=== PATIENT | female | born 1965 | race Caucasian/White ===

== ENCOUNTER → 2022-01-28 00:46 | Outpatient (CLI) | payer MEDICARE, MEDICAID, SELFPAY ==
--- NOTE | 2022-01-28 12:15 | DI.MRI_ITS ---
Exam(s) MR IAC BRAIN WO/W EXAM: MR IAC BRAIN WO/W CLINICAL HISTORY: Left middle ear mass,rt impaired speech discrim,h74.92,h93.299,h90.a21. TECHNIQUE: Multiplanar multisequence MRI of the brain and internal auditory canals was performed. CONTRAST MATERIAL: IV Contrast: 15 mL of Magnevist contrast administered. COMPARISON: No exams were available for comparison FINDINGS: VENTRICLES AND EXTRA AXIAL SPACES: Normal in size and morphology for the patient's age. HEMORRHAGE: None. CEREBRAL PARENCHYMA: No focus of restricted diffusion to suggest acute infarct. No space-occupying le quin identified. There are several foci of hyperintense signal seen in the white matter on the T2 and FLAIR images. MIDLINE SHIFT: None. BRAINSTEM/CEREBELLUM: Normal. CALVARIUM: Normal. ENHANCEMENT: No suspicious enhancement identified. VISUALIZED PARANASAL SINUSES/MASTOIDS: The visualized paranasal sinuses are clear. There is T2 hyper intense signal seen in the left mastoid air cells. This shows no enhancement following contrast admi nistration. The right mastoid air cells are clear. [place] OF IRCH: Normal flow void. PITUITARY GLAND: Unremarkable. IAC/CP ANGLE: The internal auditory canals are within normal limits. The cerebellar pontine angles ar e unremarkable. No enhancing lesions are seen. Visualized portion of the facial nerves appear within normal limits. OTHER FINDINGS: None. IMPRESSION: 1. Effusion in the left mastoid air cells. 2. No mass or enhancing lesion seen in the external auditory canals or cerebellopontine angles. 3. No evidence of an acute infarct. 4. T2 hyperintense signal seen on the FLAIR and T2 weighted images in the white matter. This most li nate reflects small vessel ischemic disease. However, other considerations include hypertensive micr oangiopathy or diabetes, deep white matter injury, prior trauma, migraine related deep white matter d isease or demyelinating process. Infection or inflammatory processes cannot be excluded. DATA REPOSITORY:
[2022-01-28] MEDS: Gadoterate meglumine 20 ML VIAL 15 ML IVP (13:22)
--- NOTE | 2022-01-28 16:29 | DI.VRAD_ITS ---
PROCEDURE INFORMATION: Exam: MR Head Without and With Contrast Exam date and time: 01/28/2022 12:40 PM Age: 56 years old Clinical indication: Speech disturbance TECHNIQUE: Imaging protocol: MR of the head without and with intravenous contrast. Contrast material: DOTAREM; Contrast volume: 15 ml; Contrast route: INTRAVENOUS (IV); COMPARISON: No relevant prior studies available. FINDINGS: Brain: Chronic lacunar infarct in the right basal ganglia. No acute infarct. Mild chronic microvascular ischemic changes. Cerebral ventricles: Normal. No ventriculomegaly. Bones/joints: Unremarkable. Paranasal sinuses: Normal as visualized. No acute sinusitis. Mastoid air cells: Effusion in the left mastoid air cells. Orbital cavity: Unremarkable. Soft tissues: Unremarkable. Other findings: No hemorrhage. IMPRESSION: No acute intracranial abnormality. Dictated and Authenticated by: Jeevan Suarez MD. Ordering:BEREKET Hoover MD
== END ==
PROVIDERS: PCP Nurse Practitioner; Visit Provider Otolaryngology
DX: H74.8X2 Other specified disorders of left middle ear and mastoid (principal); H93.292 Other abnormal auditory perceptions, left ear; H90.A21 Sensorineural hearing loss, unilateral, right ear, with restricted hearing on the contralateral side; R90.82 White matter disease, unspecified; R47.89 Other speech disturbances; I67.82 Cerebral ischemia
CPT/HCPCS: 70553

== ENCOUNTER → 2023-07-24 00:28 | Outpatient (CLI) | payer MEDICARE, MEDICAID, SELFPAY ==
--- OUTSIDE RECORDS SUMMARY | 2023-07-24 00:39 | XMS_ITS | Patient Health Record ---
Author Name Unknown [facility] Address [address] [place] [address] Care Team Providers Care Computerized Machine Fabric Cutter Name Role Phone Jonna Bartlettna Primary Care Provider REASON FOR REFERRAL No Information MEDICATIONS Medication SIG (Take, Route, Frequency, Duration) Notes Start Date End Date Status Metoprolol Tartrate 25 MG 1 tablet with food Orally Twice a day NOTE: NEW DOSING Active Atorvastatin Calcium 80 MG 1 tablet Orally Once a day for 90 days Active Flovent HFA 110 mcg/act 2 puff Inhalation Twice a day Active Fenofibrate 160 MG 1 tablet with food Orally Once a day for 30 days Active Multivitamin Womens 50+ Adv - as directed Orally qd for 90 days 09/21/2020 Active Albuterol Sulfate (2.5 MG/3ML) 0.083% 3 ml as needed Inhalation every 8 hrs for 30 days Active ProAir HFA 108 (90 Base) MCG/ACT 2 puff as needed Inhalation every 4 hrs for 30 days 05/24/2020 Active Promethazine HCl 25 mg 1 tablet as neede d Orally every 12 hrs for 15 days PRN Active Pepcid AC Maximum Strength 20 MG 1 tablet at bedtime as needed Orally Once a day Active FLUoxetine HCl 40 MG 1 capsule Orally Once a day Active Lisinopril 40 mg 1 tablet Orally Once a day Active Dorzolamide HCl 2 % 1 drop into affected eye Ophthalmic twice a day Active Flonase Active IMMUNIZATIONS Vaccine Route Administration Date Status Comme nts Tdap HISTORY Unknown 02/21/2019 Administered Influenza FLUBLOK QUAD NONSTATE IM Intramuscular 09/21/2020 Administered SOCIAL HISTORY Tobacco Use: Social History Observation Description Date Details (start date - stop date) Former Smoker NA - NA Sex Assigned At : Social History Observation Description Sex Assigned At Unknown SMOKING Question Answer Notes Are you a: former smoker How long has it been since you last smoked? > 10 years PROBLEMS Problem Type ICD Code Onset Dates Problem Status W/U Status Risk SNOMED Code Notes Problem Refused influenza vaccine (Z28.21) Active confirmed 086035166 Problem Chronic nausea (R11.0) Active confirmed 986795319 Problem Other secondary hypertension (I15.8) Active confirmed 32568418 Problem Gastroesophageal reflux disease without esophagitis (K21.9) Active confirmed 183514672 Problem History of chronic cough (Z87.09) Active confirmed 428521875 Problem Moderate persistent asthma without complication (J45.40) Active confirmed 182641674 Problem Major depressive disorder, remission status unspecified, unspecified whether recurrent (F32.9) Active confirmed 962283437 Problem Other hyperlipidemia (E78.49) Active confirmed 73917425 PLAN OF TREATMENT Future Test Test Name Order Date CBC WITH AUTO DIFF 03/25/2021 COMPMET 03/25/2021 LIPID W/ CALCULATED LDL 03/25/2021 Insurance Providers Payer Name Payer Address Payer Phone Subscriber Number Group Number Insured Name Patient Relationship to Insured Coverage Start Date Coverage End Date MEDICARE [address] [place], [place] [id number] MARCH, NIDHI Self - patient is the insured [place] [employer] [place], [place] [id number] [phone] [id number] MARCH, NDIHI Self - patient is the insured SELF PAY AFTER [place] [address] [place] [address] MARCH, NIDHI Self - patient is the insured MEDICAL (GENERAL) HISTORY Medical History History ICD Code high blood pressure High Cholesterol HX - Smoking asthma MENOPAUSE Sinus tachycardia Vitamin D deficiency Depression CKD - stage 2 Surgical History Surgery Date(Month/Year) tubal ligation 2014 COLONOSCOPY - negative 2015 Hospitalization History Reason Date(Month/Year) Blood pressure issue
--- NOTE | 2023-07-24 07:15 | DI.CT_ITS ---
Exam(s) CT TEMPORAL BONE WO/W EXAM: CT TEMPORAL BONE WO/W CLINICAL HISTORY: disorder of left middle ear, pulsation to TM,SN HEARING LOSS,H74.90,H90.A32. TECHNIQUE: Imaging Protocol: Axial computed tomography images with coronal and sagittal reformatted images were created and reviewed. CONTRAST MATERIAL: Intravenous: Omnipaque 350 Contrast volume:100 COMPARISON: MR MR IAC BRAIN WO/W from 01/28/2022 FINDINGS: Right Temporal Bone: The cochlea, vestibule, vestibular and cochlear aqueduct are normal. The facial nerve canal is well m aintained. The semicircular canals are unremarkable. There is no evidence of dehiscence. The internal auditory canal is within normal limits. The scutum and tegmen are within normal limits. There is no evidence of otosclerosis. The middle ear ossicles are unremarkable. The middle ears clear. The external auditory canal and mastoid air cells are normal. The carotid canal and jugular foramen a re within normal limits. The temporomandibular joint is unremarkable. Left Temporal Bone: The cochlea, vestibule, vestibular and cochlear aqueduct are normal. The facial nerve canal is well m aintained. The semicircular canals are unremarkable. There is no evidence of dehiscence. The interna l auditory canal is within normal limits. The scutum and tegmen are within normal limits. There is no evidence of otosclerosis. The middle ear ossicles are unremarkable. No evidence of erosion or dest ruction. There is fluid seen within the middle ear and the mastoid air cells. The opacity extends i nto the left eustachian tube. The external auditory canal is unremarkable. The carotid canal and jugular foramen are within normal limits. The temporomandibular joint is unremarkable. IMPRESSION: 1. Complete opacification of the left mastoid air cells and middle ear cavity compatible with nonspec ific otomastoiditis. 2. Unremarkable middle ear ossicles. No evidence of erosions or destruction. RADIATION DOSE DELIVERED: 773.65mGy.cm Total DLP DATA REPOSITORY: All CT scans at this facility are submitted to the National Radiology Data Registry (NRDR) Dose Index Registry (DIR) with the [employer] (ACR). RADIATION OPTIMIZATION: All CT scans at this facility use at least one of these dose optimization te chniques: automated exposure control; mA and/or kV adjustment per patient size (includes targeted exa ms where dose is matched to clinical indication); or iterative reconstruction.
[2023-07-24 13:08] LABS: CREATININE 1.4 mg/dL (0.55-1.02); Estimated GFR 43.07 (mL/min/1.73m2)
[2023-07-24] MEDS: Normal Saline - Diluent 50 ML VIAL IJ (13:48)
[2023-07-24] MEDS: Omnipaque 350 MG/ML 100 ML BTL IJ (13:48)
--- NOTE | 2023-07-25 23:19 | DI.VRAD_ITS ---
PROCEDURE INFORMATION: Exam: CT Temporal Bones Without and With Contrast. Exam date and time: 07/24/2023 1:51 PM Age: 58 years old Clinical indication: Other: Unknown TECHNIQUE: Imaging protocol: Computed tomography of the temporal bones without and with contrast. Contrast material: OMNIPAQUE 350; Contrast volume: 100 ml; Contrast route: INTRAVENOUS (IV); COMPARISON: MR IAC BRAIN WO/W 01/28/2022 12:26 PM FINDINGS: Right inner ear: Normal. Right ossicles and middle ear: Normal. The middle ear ossicles are intact. Right external auditory canal: Normal. Right facial nerve canal: Normal. Right jugular foramen: No jugular dehiscence. Right carotid canal: No aberrant carotid canal. Right mastoid air cells: Normal. No mastoid effusions. Left inner ear: Normal. Left ossicles and middle ear: There is complete opacification of the left middle ear cavity. Left middle ear ossicles appear intact with no evidence of erosion or destruction. Opacity extends into the left eustachian tube. Left external auditory canal: Normal. Left facial nerve canal: Normal. Left jugular foramen: No jugular dehiscence. Left carotid canal: No aberrant carotid canal. Left mastoid air cells: There is complete opacification of the left mastoid air cells. Bones/joints: Moderate degenerative changes in the upper cervical spine. Soft tissues: Unremarkable. IMPRESSION: Complete opacification of the left mastoid air cells and middle ear cavity compatible with nonspecific otomastoiditis Dictated and Authenticated by: Favio Wallace MD. Ordering:TAVIA Rollins MD
== END ==
PROVIDERS: PCP Nurse Practitioner; Visit Provider Registered Nurse Maternal Newborn
DX: H70.92 Unspecified mastoiditis, left ear; H90.A32 Mixed conductive and sensorineural hearing loss, unilateral, left ear with restricted hearing on the contralateral side
CPT/HCPCS: 70482; 82565; J3490

== ENCOUNTER 2024-05-11 09:32 | Outpatient (CLI) | payer MEDICARE, MEDICAID, SELFPAY ==
[2024-05-11 10:43] LABS: Abs Immature Grans 0.02 10^3/uL (0.0-0.06); Absolute Basophil Count 0.07 10^3/uL (0.0-0.2); Absolute Eosinophil Count 0.21 10^3/uL (0.0-0.7); Absolute Lymphocyte Count 2.64 10^3/uL (1.2-3.4); Absolute Monocyte Count 0.89 10^3/uL (0.1-0.8); Absolute Neutrophil Count 2.43 10^3/uL (1.2-6.7); Basophils % 1.1 %; Eosinophils % 3.4 %; HCT 37.2 % (36.0-46.0); HGB 11.9 g/dL (11.2-15.7); Immature Grans % 0.3 %; Lymphocytes % 42.2 %; MCH 29.2 pg (27.0-33.0); MCV 91 fL (80-95); MPV 10.3 fL (8.0-11.0); Monocytes % 14.2 %; Neutrophils % 38.8 %; Platelet Count 339 10^3/uL (130-400); RBC 4.08 10^6/uL (3.93-5.22); RDW 12.7 % (11.7-14.6); RDW-SD 42.2 fL; WBC 6.26 10^3/uL (4.4-10.8)
[2024-05-11 10:55] LABS: Hemoglobin A1C 6.1 % (<5.7)
[2024-05-11 11:03] LABS: ALT 57 U/L (14-59); AST 36 U/L (15-37); Albumin 4.1 g/dL (3.4-5.0); Alkaline Phosphatase 59 U/L (46-116); Anion Gap 9.2 mmol/L (3-11); BUN 35 mg/dL (7-18); Bilirubin, Total 0.4 mg/dL (0.2-1.0); CO2 28.8 mmol/L (21.0-32.0); CREATININE 1.2 mg/dL (0.55-1.02); Calcium 9.9 mg/dL (8.5-10.1); Calculated LDL 83 mg/dL (<100); Chloride 102 mmol/L (98-107); Cholesterol 173 mg/dL (<200); Estimated GFR 51.82 (mL/min/1.73m2); Glucose 94 mg/dL (74-106); HDL Cholesterol 43 mg/dL (40-60); Magnesium 1.5 mg/dL (1.8-2.4); Potassium 4.4 mmol/L (3.5-5.1); Sodium 140 mmol/L (136-145); Total Protein 7.9 g/dL (6.4-8.2); Triglyceride 237 mg/dL (<150)
== END 2024-05-11 09:33 | disposition home or self-care (01) ==
LOC: LBO 09:32
PROVIDERS: PCP Nurse Practitioner; Visit Provider Nurse Practitioner
DX: E11.9 Type 2 diabetes mellitus without complications (principal)
CPT/HCPCS: 36415; 80053; 80061; 83036; 83735; 85025

== ENCOUNTER 2024-10-14 09:36 | Outpatient (CLI) | payer MEDICARE, MEDICAID, SELFPAY ==
--- OUTSIDE RECORDS SUMMARY | 2024-10-14 09:39 | XMS_ITS | Encounter Summary ---
Author Organization [facility] Address [facility] [place] [address] Care Team Providers Care Overnight Stocker Name Role Phone Unavailable Primary Care Provider Unavailabl e Encounter Details Date Type Department Care Team (Late st Contact Info) Description 03/17/2022 [place] [address] Walt Braden MD [facility] [place] [address] Unspecified disorder of left middle ear and mastoid Social History Tobacco Use Types Packs/Day Years Used Date Smoking Tobacco: Never Assessed Sex and Gender Information Value Date Recorded Sex Assigned at Not on file Gender Identity Not on file Sexual Orientation Not on file documented as of this encounter Plan of Treatment Not on file documented as of this encounter Visit Diagnoses Diagnosis Unspecified disorder of left middle ear and mastoid documented in this encounter
--- OUTSIDE RECORDS SUMMARY | 2024-10-14 09:39 | XMS_ITS | Encounter Summary ---
Author Organization [facility] [place] [address] Care Team Providers Care Field Sales Associate Name Role Phone Paula Bartlett PICKER/PULLER Primary Care Provider [phone] Encounter Details Date Type Department Care Team (Latest Contact Info) Description 06/25/2022 9:43 PM EDT - 06/25/2022 11:59 PM EDT [place] [phone] Discharge Disposition: Home Social History Tobacco Use Types Packs/Day Years Used Date Smoking Tobacco: Never Assessed Sex and Gender Information Value Date Recorded Sex Assigned at Not on file Gender Identity Not on file Sexual Orientation Not on file documented as of this encounter Plan of Treatment Not on file documented as of this encounter Procedures Procedure Name Priority Date/Time Associated Diagnosis Comments SURGICAL PATHOLOGY REPORT Routine 06/25/2022 9:46 AM EDT documented in this encounter Results * Surgical Pathology Report (06/25/2022 9:46 AM EDT) Final Diagnosis [id number] ? Location: [facility] The signing pathologist has (i) examined the relevant preparation(s) for the specimen(s) and (ii) rendered or confirmed the diagnosis(es). . ?Surgical Pathology DIAGNOSIS A - 3 mm polyp at 15 cm, biopsy: Hyperplastic polyp. Electronically signed by: ?Kevin NEUMANN, Gely Verified: ??07/01/2022 18:32 ??Pathologist Performed at: ??-[facility] [place], [place], [place] SPECIMEN(S) SUBMITTED A - 3 mm polyp at 15 cm Referring Identifier: ??[id number] CLINICAL INFORMATION Initial colonoscopy screening SPECIMEN PROCESSING A - Labeled/Fixativ e: 3 mm polyp at 15 cm, formalin. Quantity/Size: Single, 0.5 cm. Tissue Description: Soft, pink-red tissue. Sections/Proces sing: Submitted en toto ??in 1 cassette labeled A1. ??sns 07/01/2022 6:32 PM EDT [facility] GI Biopsy 06/25/2022 9:46 AM EDT 06/25/2022 9:46 AM EDT Narrative Resulting Agency Comment Spec In Lab / [facility] Jennifer Manzo MD PATHOLOGY/CYTOLOGY O RDERASARTHAK Performing Organization Address City/State/[facility] Co de Phone Number [facility] [place] [address] documented in this encounter Visit Diagnoses Not on filedocumented in this encounter Care Teams Field Sales Associate Relationship Specialty Start Date End Date Paula Bartlett, PICKER/PULLER [address] [place] [id number] PCP - General Family Medicine 03/19/22 documented as of this encounter
--- OUTSIDE RECORDS SUMMARY | 2024-10-14 09:39 | XMS_ITS | Encounter Summary ---
Author Organization [facility] Address [facility] [place] [address] Care Team Providers Care Independent Living Instructor Name Role Phone DhruvPaula Milton REID Primary Care Provider Encounter Details Date Type Department Care Team ([facility] st Contact Info) Description 04/15/2022 Telephone Otolaryngology at [facility] [phone] Isabel Bacon Social History Tobacco Use Types Packs/Day Years Used Date Smoking Tobacco: Never Assessed Sex and Gender Information Value Date Recorded Sex Assigned at Not on file Gender Identity Not on file Sexual Orientation Not on file documented as of this encounter Miscellaneous Notes * Telephone Encounter - Isabel Bacon - 04/15/2022 1:10 PM EDT Pt and her spouse called today to cancel her CT-HT and Appointment with DR Braden. They had no transportation. They declined to re-schedule at this time and stated they will call us to reschedule. documented in this encounter Plan of Treatment Not on file documented as of this encounter Visit Diagnoses Not on filedocumented in this encounter Care Teams Independent Living Instructor Relationship Specialty Start Date End Date Paula Bartlett APRN [address] [place] [id number] PCP - General Family Medicine 03/19/22 documented as of this encounter
--- OUTSIDE RECORDS SUMMARY | 2024-10-14 09:39 | XMS_ITS | Encounter Summary ---
Author Organization [facility] Address [facility] [place] [address] Care Team Providers Care Coroner/Medical Examiner Name Role Phone Unavailable Primary Care Provider Unavailabl e Encounter Details Date Type Department Care Team (Late st Contact Info) Description 01/28/2022 Ancillary Procedure Radiology Library at [facility] [place] [address] Paula Bartlett, JEANETTE [address] [place] [address] Social History Tobacco Use Types Packs/Day Years Used Date Smoking Tobacco: Never Assessed Sex and Gender Information Value Date Recorded Sex Assigned at Not on file Gender Identity Not on file Sexual Orientation Not on file documented as of this encounter Plan of Treatment Not on file documented as of this encounter Procedures Procedure Name Priority Date/Time Associated Diagnosis Comments FILM LIBRARY STORAGE ONLY MR HEAD Routine 01/28/2022 12:00 AM EST documented in this encounter Results * Film Library- Storage Only MR Head (01/28/2022 12:00 AM EST) Narrative [facility] - 03/21/2022 10:59 AM EDT This exam is auto-finalizing. It's purpose is for storage only. Paula Bartlett CONCRETE FLOATER IMG FILM LIBRARY ORD ERABLES [facility] [place], [place] documented in this encounter Visit Diagnoses Not on filedocumented in this encounter
--- OUTSIDE RECORDS SUMMARY | 2024-10-14 09:39 | XMS_ITS | Encounter Summary ---
Author Organization [facility] [place] [address] Care Team Providers Care Cavity Pump Operator Name Role Phone Unavailable Primary Care Provider Unavailabl e Encounter Details Date Type Department Care Team (Late st Contact Info) Description 03/18/2022 Telephone [place] [phone] Subha Flowers Social History Tobacco Use Types Packs/Day Years Used Date Smoking Tobacco: Never Assessed Sex and Gender Information Value Date Recorded Sex Assigned at Not on file Gender Identity Not on file Sexual Orientation Not on file documented as of this encounter Miscellaneous Notes * Telephone Encounter - Subha Flowers - 03/18/2022 1:14 PM EDTSummary: Image Request - [facility] From: Subha Flowers Sent: Friday, March 18, 2022 1:14 PM To: '[email or web address]' <[email or web address]> Subject: Urgent Image Request Patient: Romi March : 1965 [place], The above patient was referred to our ENT clinic at [facility]. Patient hadimages done at your facility and are needed here for proper transition. Please forward the images & reports ROSHNI for our provider to review. Specific images & reports we are looking for are MRI Images done January 2022. Please send them electronically to [facility] to the attention of Dr. Walt Braden. If you do not have the capability to send electronically please send the images & reports on a disc to: [facility] Department of Otolaryngology [address] [place] [id number] Please use FedEx number [id number] to overnight the disc Thank you, Subha Flowers Sr. Clinical [place], Oral & Maxillofacial Surgery, Otolaryngology, and Audiology [facility] phone: [phone] fax: [phone] documented in this encounter Plan of Treatment Not on file documented as of this encounter Visit Diagnoses Not on filedocumented in this encounter
--- OUTSIDE RECORDS SUMMARY | 2024-10-14 09:39 | XMS_ITS | Encounter Summary ---
[place] [address] Care Team Providers Care Deckhand Engineer Name Role Phone Paula Bartlett APRN Primary Care Provider [phone] Encounter Details Date Type Department Care Team ([facility] st Contact Info) Description 03/19/2022 Orders [place] [address] Pauly Gama RN Unspecified disorder of left middle ear and [...] ear and mastoid documented in this encounter Care Teams Deckhand Engineer Relationship Specialty Start Date End Date Paula Bartlett APRN [address] [place] [address] PCP - General Family Medicine 03/19/22 documented as of this encounter
--- OUTSIDE RECORDS SUMMARY | 2024-10-14 09:39 | XMS_ITS | Encounter Summary ---
Author Organization [facility] Address [facility] [place] [address] Care Team Providers Care Precision Inspector Name Role Phone Paula Bartlett APRN Primary Care Provider [phone] Encounter Details Date Type Department Care Team ([facility] st Contact Info) Description 07/24/2023 Ancillary Procedure Radiology Library at [facility] [place] [address] Paula Bartlett APRN [address] [place] [address] Social History Tobacco Use Types Packs/Day Years [...] Associated Diagnosis Comments FILM LIBRARY STORAGE ONLY CT HEAD Routine 07/24/2023 12:00 AM EDT documented in this encounter Results * Film Library- Storage Only CT Head (07/24/2023 12:00 AM EDT) Narrative [facility] - 07/28/2023 7:04 AM EDT This exam is auto-finalizing. It's purpose is for storage only. Paula Bartlett APRN IMG FILM LIBRARY ORD ERABLES [facility] [place], [place] documented in this encounter Visit Diagnoses Not on filedocumented in this encounter Care Teams Precision Inspector Relationship Specialty Start Date End Date Paula Bartlett APRN [address] [place] [address] PCP - General Family Medicine 03/19/22 documented as of this encounter
--- OUTSIDE RECORDS SUMMARY | 2024-10-14 09:39 | XMS_ITS | Patient Health Record ---
Author Organization [facility] Address [address] [place] [address] Care Team Providers Care Nuclear Medicine Pet Ct Technologist Name Role Phone Paula Bartlett Primary Care Provider REASON FOR REFERRAL No [...] Problem Refused influenza vaccine (Z28.21) Active confirmed 738747864 Problem Chronic nausea (R11.0) Active confirmed 205537753 Problem Other secondary hypertension (I15.8) Active confirmed 17582605 Problem Gastroesophageal reflux disease without esophagitis (K21.9) Active confirmed 622750258 Problem History of chronic cough (Z87.09) Active confirmed 000018538 Problem Moderate persistent asthma without complication (J45.40) Active confirmed 753488078 Problem Major depressive disorder, remission status unspecified, unspecified whether recurrent (F32.9) Active confirmed 439761135 Problem Other hyperlipidemia (E78.49) Active confirmed 13815730 PLAN OF TREATMENT Future Test Test Name Order Date CBC WITH AUTO DIFF 03/25/2021 COMPMET 03/25/2021 LIPID W/ CALCULATED LDL 03/25/2021 Insurance Providers Payer Name Payer Address Payer Phone Subscriber Number Group Number Insured Name Patient Relationship to Insured Coverage Start Date Coverage End Date MEDICARE [address] [place], [place] [id number] MARCH, NIDHI Self - patient is the insured [place] [employer] [place], [place] [id number] [phone] [id number] MARCH, NIDHI Self - patient is the insured SELF PAY AFTER [place] [address] [address] MARCH, NIDHI Self - patient is the insured MEDICAL (GENERAL) HISTORY Medical History History ICD Code high blood pressure High Cholesterol HX - Smoking asthma MENOPAUSE Sinus tachycardia Vitamin D deficiency Depression CKD - stage 2 Surgical History Surgery Date(Month/Year) tubal ligation 2014 COLONOSCOPY - negative 2015 Hospitalization History Reason Date(Month/Year) Blood pressure issue
--- OUTSIDE RECORDS SUMMARY | 2024-10-14 09:39 | XMS_ITS | Encounter Summary ---
Author Organization [facility] Address [facility] [place] [address] Care Team Providers Care Coarse Wire Drawer Name Role Phone DhruvPaula haji JEANETTE Primary Care Provider [phone] Reason for Referral * Consultation (Routine) - Closed Specialty Diagnoses / Procedures Referred By Anthony dunaway Referred To Contact Otolaryngology Diagnoses Unspecified disorder of left middle ear and mastoid Mixed conductive and sensorineural hearing loss, unilateral, left ear with restricted hearing on the contralateral side Ria Cruz APRN [address] [place] [address] [place] [address] Walt Braden MD [facility] [place] [address] Referral ID Status Reason Start Date Expiration Date V isits Requested Visits Authorized [id number] Closed Consult, Test & Treat PCP Updated and/or Approved 07/30/2023 07/29/2024 1 1 Encounter Details Date Type Department Care Team (Latest Contact Info) Description 07/30/2023 Transcribe Orders eDH Incoming Referrals [phone] Cruz [address] [place], [place] [id number] Unspecified disorder of left middle ear and mastoid; Mixed conductive and sensorineural hearing loss, unilateral, left ear with restricted hearing on the contralateral side Social History Tobacco Use Types Packs/Day Years Used Date Smoking Tobacco: Never Assessed Sex and Gender Information Value Date Recorded Sex Assigned at Not on file Gender Identity Not on file Sexual Orientation Not on file documented as of this encounter Plan of Treatment Scheduled Referrals Name Type Priority Associated Diagnoses Orde r Schedule Referral to ENT Outpatient Referral Routine Unspecified disorder of left middle ear and mastoid Mixed conductive and sensorineural hearing loss, unilateral, left ear with restricted hearing on the contralateral side Ordered: 07/30/2023 documented as of this encounter Visit Diagnoses Diagnosis Unspecified disorder of left middle ear and mastoid Mixed conductive and sensorineural hearing loss, unilateral, left ear with restricted hearing on the contralateral side documented in this encounter Care Teams Coarse Wire Drawer Relationship Specialty Start Date End Date Paula Bartlett APRN [address] [place] [id number] PCP - General Family Medicine 03/19/22 documented as of this encounter
--- OUTSIDE RECORDS SUMMARY | 2024-10-14 09:39 | XMS_ITS | Clinical Summary ---
Author Organization [facility] [place] [address] Care Team Providers Care Global Director Air And Climate Change Name Role Phone Paula Bartlett JEANETTE Primary Care Provider [phone] Immunizations Name Administration Dates Next Due Covid-19 Monovalent (Pfizer Comirnaty maddox cap) 12yrs+ ([id number]) 09/18/2021,08/15/2021 Social History Tobacco Use Types Packs/Day Years Used Date Smoking Tobacco: Never Assessed Sex and Gender Information Value Date Recorded Sex Assigned at Not on file Gender Identity Not on file Sexual Orientation Not on file Plan of Treatment Health Maintenance Due Date Last Done Comments CT Colonography 1963 Colonoscopy 1963 Colorectal Cancer Screening 1963 FIT DNA 1963 FIT 1963 Sigmoidoscopy (10 year) with FIT yearly 1963 Sigmoidoscopy 1963 HIV screen 1981 Hepatitis C Screening 1981 Tetanus/Diphtheria/Pertussis Vaccines (1 - Tdap) 1982 HPV test 1993 PAP Smear 1993 Breast Cancer Share Decision Needed 2003 Breast Cancer screening 2003 Zoster vaccine (1 of 2) 2013 Advance Directive 2018 Covid-19 Vaccine ( season) 2024, 08/15/2021 Influenza (Flu) vaccine (1 o f 1 - Influenza standard series) 07/31/2024 Care Teams Global Director Air And Climate Change Relationship Specialty Start Date End Date Paula Bartlett APRN [address] [place] [address] PCP - General Family Medicine 03/19/22
--- OUTSIDE RECORDS SUMMARY | 2024-10-14 09:39 | XMS_ITS | Encounter Summary ---
Author Organization [facility] Address [facility] [place] [address] Care Team Providers Care Gymnastics Coach Name Role Phone Unavailable Primary Care Provider Unavailabl e Reason for Referral * Consultation (Routine) - Closed Specialty Diagnoses / Procedures Referred By Anthony t Referred To Contact Otolaryngology Diagnoses Unspecified disorder of left middle ear and mastoid Other abnormal auditory perceptions, unspecified ear Mixed conductive and sensorineural hearing loss, unilateral, left ear with restricted hearing on the contralateral side Sensorineural hearing loss, unilateral, right ear, with restricted hearing on the contralateral side Attn Walt Braden: this is the patient has spoke to you about who 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 your plan was to perform a ct scan of her temporal bone on the same day that you saw her. Kiko Mi MD [address] [place] [address] [place] [address] Walt Braden MD [facility] [place] [address] Referral ID Status Reason Start Date Expiration Date V isits Requested Visits Authorized [id number] Closed Consult, Test & Treat 02/07/2022 02/07/2023 1 1 Encounter Details Date Type Department Care Team (Latest Contact Info) Description 02/07/2022 Transcribe Orders [place] [address] Kkio Mi MD [address] [place] [address] [place] [address] Unspecified disorder of left middle ear and mastoid; Other abnormal auditory perceptions, unspecified ear; Mixed conductive and sensorineural hearing loss, unilateral, left ear with restricted hearing on the contralateral side; Sensorineural hearing loss, unilateral, right ear, with restricted hearing on the contralateral side [...] disorder of left middle ear and mastoid Other abnormal auditory perceptions, unspecified ear Mixed conductive and sensorineural hearing loss, unilateral, left ear with restricted hearing on the contralateral side Sensorineural hearing loss, unilateral, right ear, with restricted hearing on the contralateral side Ordered: 02/07/2022 documented as of this encounter Visit Diagnoses Diagnosis Unspecified disorder of left middle ear and mastoid Other abnormal auditory perceptions, unspecified ear Mixed conductive and sensorineural hearing loss, unilateral, left ear with restricted hearing on the contralateral side Sensorineural hearing loss, unilateral, right ear, with restricted hearing on the contralateral side documented in this encounter
[2024-10-14 09:55] LABS: Abs Immature Grans 0.03 10^3/uL (0.0-0.06); Absolute Basophil Count 0.08 10^3/uL (0.0-0.2); Absolute Eosinophil Count 0.27 10^3/uL (0.0-0.7); Absolute Lymphocyte Count 2.36 10^3/uL (1.2-3.4); Absolute Monocyte Count 0.76 10^3/uL (0.1-0.8); Absolute Neutrophil Count 4.44 10^3/uL (1.2-6.7); Eosinophils % 3.4 %; HCT 34.4 % (36.0-46.0); HGB 11.2 g/dL (11.2-15.7); Immature Grans % 0.4 %; Lymphocytes % 29.7 %; MCHC 32.6 % (32.0-36.0); MCV 89 fL (80-95); MPV 10.2 fL (8.0-11.0); Monocytes % 9.6 %; Neutrophils % 55.9 %; Platelet Count 381 10^3/uL (130-400); RBC 3.86 10^6/uL (3.93-5.22); RDW 12.3 % (11.7-14.6); RDW-SD 40.2 fL; WBC 7.94 10^3/uL (4.4-10.8)
[2024-10-14 10:07] LABS: ALT 40 U/L (14-59); AST 24 U/L (15-37); Albumin 4.1 g/dL (3.4-5.0); Alkaline Phosphatase 51 U/L (46-116); Anion Gap 8.9 mmol/L (3-11); BUN 45 mg/dL (7-18); Bilirubin, Total 0.36 mg/dL (0.2-1.0); CO2 29.1 mmol/L (21.0-32.0); CREATININE 1.5 mg/dL (0.55-1.02); Calcium 10.6 mg/dL (8.5-10.1); Calculated LDL 89 mg/dL (<100); Chloride 104 mmol/L (98-107); Cholesterol 175 mg/dL (<200); Glucose 98 mg/dL (74-106); HDL Cholesterol 44 mg/dL (40-60); Magnesium 1.5 mg/dL (1.8-2.4); Potassium 4.5 mmol/L (3.5-5.1); Sodium 142 mmol/L (136-145); Total Protein 8.1 g/dL (6.4-8.2); Triglyceride 214 mg/dL (<150)
== END 2024-10-14 09:37 | disposition home or self-care (01) ==
LOC: LBO 09:37
PROVIDERS: PCP Nurse Practitioner; Visit Provider Nurse Practitioner
DX: E11.9 Type 2 diabetes mellitus without complications (principal); E78.49 Other hyperlipidemia
CPT/HCPCS: 36415; 80053; 80061; 83735; 85025

== ENCOUNTER 2024-10-24 11:51 | Outpatient (CLI) | payer MEDICARE, MEDICAID, SELFPAY ==
[2024-10-24 09:54] LABS: Abs Immature Grans 0.02 10^3/uL (0.0-0.06); Absolute Basophil Count 0.05 10^3/uL (0.0-0.2); Absolute Eosinophil Count 0.31 10^3/uL (0.0-0.7); Absolute Lymphocyte Count 1.81 10^3/uL (1.2-3.4); Absolute Monocyte Count 0.61 10^3/uL (0.1-0.8); Absolute Neutrophil Count 3.33 10^3/uL (1.2-6.7); Basophils % 0.8 %; Eosinophils % 5.1 %; HCT 33.9 % (36.0-46.0); HGB 11.1 g/dL (11.2-15.7); Immature Grans % 0.3 %; Lymphocytes % 29.5 %; MCH 28.3 pg (27.0-33.0); MCHC 32.7 % (32.0-36.0); MCV 87 fL (80-95); MPV 9.6 fL (8.0-11.0); Neutrophils % 54.3 %; Platelet Count 551 10^3/uL (130-400); RBC 3.92 10^6/uL (3.93-5.22); RDW 12.6 % (11.7-14.6); RDW-SD 39.7 fL; WBC 6.13 10^3/uL (4.4-10.8)
[2024-10-24 10:18] LABS: ALT 46 U/L (14-59); AST 28 U/L (15-37); Albumin 3.5 g/dL (3.4-5.0); Alkaline Phosphatase 91 U/L (46-116); Anion Gap 10.6 mmol/L (3-11); BUN 74 mg/dL (7-18); CO2 26.4 mmol/L (21.0-32.0); CREATININE 2.7 mg/dL (0.55-1.02); Calculated LDL 132 mg/dL (<100); Chloride 100 mmol/L (98-107); Cholesterol 221 mg/dL (<200); Estimated GFR 19.46 (mL/min/1.73m2); Glucose 113 mg/dL (74-106); HDL Cholesterol 30 mg/dL (40-60); Magnesium 2.2 mg/dL (1.8-2.4); Potassium 4.2 mmol/L (3.5-5.1); Sodium 137 mmol/L (136-145); Total Protein 8.7 g/dL (6.4-8.2); Triglyceride 298 mg/dL (<150)
== END 2024-10-24 11:52 | disposition home or self-care (01) ==
LOC: LBO 11:54
PROVIDERS: PCP Nurse Practitioner; Visit Provider Nurse Practitioner
DX: E11.9 Type 2 diabetes mellitus without complications (principal)
CPT/HCPCS: 36415; 80053; 80061; 83735; 85025

== ENCOUNTER 2024-10-26 01:09 | Outpatient (CLI) | payer MEDICARE, MEDICAID, SELFPAY ==
--- NOTE | 2024-10-26 | DI.US_ITS ---
Exam(s) US RENAL EXAM: US RENAL CLINICAL HISTORY: ABNL LEVELS SERUM ENZYMES, R74.8. TECHNIQUE: Zavala scale, color and spectral Doppler were used. COMPARISON: No exams were available for comparison FINDINGS: Renal size in cm: Right: 10.5. Left: 10.7. Echogenicity: Normal. Hydronephrosis: No. Cyst or mass: There is a 1.4 x 1.1 x 1.1 cm simple cyst in the inferior pole of the left kidney. No follow-up is recommended. Nephrolithiasis: No. Other findings: None. Bladder:The bladder was completely empty and could not be evaluated. Ureteral jets: Right: Not visualized on this examination. Left: Not visualized on this examination. Renal color flow: Symmetric and within normal limits. IMPRESSION: 1. Unremarkable kidneys. 2. The urinary bladder cannot be evaluated as the bladder was completely empty on the examination. DATA REPOSITORY:
== END 2024-10-26 01:29 ==
LOC: DI 01:09
PROVIDERS: PCP Nurse Practitioner; Visit Provider Nurse Practitioner
DX: R74.8 Abnormal levels of other serum enzymes (principal)
CPT/HCPCS: 76770

== ENCOUNTER 2025-01-06 13:56 | Outpatient (CLI) | payer MEDICARE, MEDICAID, SELFPAY ==
[2025-01-06 11:34] LABS: ALT 25 U/L (14-59); AST 21 U/L (15-37); Albumin 4.1 g/dL (3.4-5.0); Alkaline Phosphatase 54 U/L (46-116); Anion Gap 9.9 mmol/L (3-11); BUN 25 mg/dL (7-18); Bilirubin, Total 0.48 mg/dL (0.2-1.0); CO2 27.1 mmol/L (21.0-32.0); CREATININE 1.8 mg/dL (0.55-1.02); Chloride 102 mmol/L (98-107); Estimated GFR 31.66 (mL/min/1.73m2); Glucose 106 mg/dL (74-106); Potassium 4.2 mmol/L (3.5-5.1); Sodium 139 mmol/L (136-145); Total Protein 8.3 g/dL (6.4-8.2)
== END 2025-01-06 13:57 | disposition home or self-care (01) ==
LOC: LBO 13:57
PROVIDERS: PCP Nurse Practitioner; Visit Provider Nurse Practitioner
DX: R74.8 Abnormal levels of other serum enzymes (principal)
CPT/HCPCS: 36415; 80053

== ENCOUNTER 2025-01-13 10:44 | Day surgery (SDC) | payer MEDICARE, MEDICAID, SELFPAY ==
[2025-01-13 11:20] VITALS: BP 175/86; PULSE 57; RESP 16; TEMP 36.3; O2SAT 98
[2025-01-13] MEDS: Tropicam./Phenyleph. (1/2.5%) 5 ML BTL OD ×3 (11:35→11:44)
--- NOTE | 2025-01-13 12:24 | ANES.PREOP_ITS ---
General Info Date of Service Date Performed: 01/13/25 Height: 5 ft 2 in Weight: 67.2 kg Body Mass Index (BMI): 27.1 Surgical Procedure: Operation Date: 01/13/25 12:25 Proposed Procedure Side Surgeon p Cataract Extraction with IOL Implant, Glaucoma Stent Right Luke Anderson MD Meds Allergies and Home Medications Allergies Allergy/AdvReac Type Severity Reaction Status Date / Time No Known Allergies Allergy Verified 01/13/25 11:30 Home Medication ?Medication ?Instructions ?Recorded albuterol sulfate 1.25 mg/3 mL 1.25 mg inhalation TID-QID PRN 06/01/23 solution for nebulization albuterol sulfate 90 mcg/actuation 2 puff inhalation Q4H PRN 06/01/23 aerosol inhaler atorvastatin 80 mg tablet 80 mg PO DAILY 06/01/23 dorzolamide 2 % eye drops 1 drp ophthalmic (eye) TID 06/01/23 famotidine 20 mg tablet 20 mg PO DAILY 06/01/23 fenofibrate 160 mg tablet 160 mg PO DAILY 06/01/23 fluoxetine 40 mg capsule 40 mg PO DIRECTED 06/01/23 fluticasone propionate 110 2 puff inhalation BID 06/01/23 mcg/actuation HFA aerosol inhaler fluticasone propionate 50 2 spray intranasal DAILY 06/01/23 mcg/actuation nasal spray,suspension (Allergy Relief (fluticasone)) hydrochlorothiazide 50 mg tablet 50 mg PO BID 06/01/23 lisinopril 40 mg tablet 40 mg PO DAILY 06/01/23 metoprolol tartrate 50 mg tablet 50 mg PO BID 06/01/23 multivitamin (Daily Multi-Vitamin 1 tab PO DAILY 06/01/23 tablet) Current Visit Medications: Current Medications Generic Name Dose Route Start Last Admin Trade Name Freq PRN Reason Stop Dose Admin Acetaminophen 1,000 mg 01/13/25 06:00 Acetaminophen 500 Mg Tab PO 02/12/25 05:59 Q4H PRN PRN Balanced Salt Solution 500 ml 01/13/25 06:00 Balanced Salt Soln.-Plus 500 Ml Bag OP 02/12/25 05:59 DIRECTED ALDA Miscellaneous Medication 0 ml 01/13/25 06:00 Prednisolone 1%, Moxifloxacin 0.5%, Bromfenac 0.09% 5.6ml Btl OD 02/12/25 05:59 DIRECTED COUNTS INCLUDE 234 BEDS AT THE [facility] Miscellaneous Medication 0 ml 01/13/25 06:00 01/13/25 11:44 Tropicam./Phenyleph. (1/2.5%) 5 Ml Btl OD 02/12/25 05:59 1 drp DIRECTED ALDA Administration Tetracaine HCl 0 ml 01/13/25 06:00 Tetracaine 0.5% 4 Ml Btl OD 02/12/25 05:59 DIRECTED COUNTS INCLUDE 234 BEDS AT THE [facility] PFSH Active Problems Active Problems: Problem Status Onset Code Posterior subcapsular age-related cataract, right eye Acute H25.041 Nuclear age-related cataract, right eye Acute H25.11 Snoring Acute R06.83 Disorder of middle ear and mastoid Acute H74.90 Impairment of speech discrimination Acute H93.299 Sensorineural hearing loss of right ear Acute H90.5 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 ear Acute H90.A32 Medical History Medical History Influenza vaccination declined History of colonic polyps Chronic cough Habitual snoring Sleeping difficulties Nevus Moderate persistent asthma without complication Vitamin D deficiency Sinus tachycardia Menopause History of cigar smoking CKD (chronic kidney disease) stage 2, GFR 60-89 ml/min Hyperlipidemia GERD (gastroesophageal reflux disease) Chronic nausea Major depressive disorder Secondary hypertension Surgical History Surgical History History of bilateral tubal ligation H/O colonoscopy Tobacco Smoking/Tobacco Use Status: Never Alcohol Alcohol Intake: current Alcohol intake frequency: holidays/special occasions only Substance Use Substance use: Never Substance use type: does not use Vital Signs and Lab Results Vital Signs Most Recent Vital Signs in EMR: Most Recent Vital Signs Temp Pulse Resp BP Pulse Ox 36.3 C L 57 L 16 175/86 H 98 01/13/25 11:20 01/13/25 11:20 01/13/25 11:20 01/13/25 11:20 01/13/25 11:20 Lab Results Blood Type / Crossmatch: No Data to Display Complete Blood Count: No Data to Display Complete Metabolic Panel: Sodium 139 mmol/L (136-145) 01/06/25 10:45 Potassium 4.2 mmol/L (3.5-5.1) 01/06/25 10:45 Chloride 102 mmol/L (98-107) 01/06/25 10:45 Carbon Dioxide 27.1 mmol/L (21.0-32.0) 01/06/25 10:45 BUN 25 mg/dL (7-18) H 01/06/25 10:45 Creatinine 1.8 mg/dL (0.55-1.02) H 01/06/25 10:45 Est GFR (CKD-EPI 2020) 31.66 (mL/min/1.73m2) 01/06/25 10:45 Calcium 10.0 mg/dL (8.5-10.1) 01/06/25 10:45 Albumin 4.1 g/dL (3.4-5.0) 01/06/25 10:45 Glucose 106 mg/dL (74-106) 01/06/25 10:45 Liver Function Panel: Alanine Aminotransferase (ALT/SGPT) 25 U/L (14-59) 01/06/25 10: 45 Aspartate Amino Transf (AST/SGOT) 21 U/L (15-37) 01/06/25 10:45 Coagulation Panel: No Data to Display Cardiac Panel: No Data to Display Arterial Blood Gas: No Data to Display Venous Blood Gas: No Data to Display Pancreas Panel: No Data to Display Thyroid Panel: No Data to Display Infectious Disease: No Data to Display Blood Cultures: No Data to Display Toxicology Panel: No Data to Display Anesthesia Assessment and Plan Anesthesia History Personal History: No History of Anesthesia Complications Family History: No Family History of Anesthesia Complications Exercise Tolerance Exercise Tolerance: Metabolic Equivalents>4 Cardiac & Pulmonary Exam Cardiac Exam: Normal S1/S2 Heart Sounds Pulmonary Exam: Clear Bilateral Breath Sounds Implantable Cardiac Device Does patient have a Pacemaker or an ICD?: No Airway Exam Known Difficult Airway: No Mallampati Class: 2 Mouth Opening: Normal (> 3cm) Thyromental Distance: Greater than 3 cm Neck Range of Motion: Full ROM Neck Circumference: Thick Teeth Condition: Edentulous ASA Classification ASA Score: ASA 2 Emergency Case?: No NPO Status NPO Status: NPO Clears >2 hours, Solids >8 hours Anesthesia Plan Resuscitation Status: Full Code Anesthesia Technique: MAC Anesthesia Airway Planned: Natural Airway Monitors Used: Standard Monitors
[2025-01-13 12:27] VITALS: BMI 27.1
[2025-01-13] MEDS: Duovisc Viscoelastic System EACH 1 EACH (12:55)
[2025-01-13] MEDS: Lidocaine 1% Pres-Free 5 ML VIAL (12:56)
[2025-01-13] MEDS: Moxifloxacin-PF 1 MG/ML VIAL (12:56)
[2025-01-13] MEDS: Povidone-Iodine Ophth 30 ML BTL (12:57)
[2025-01-13] MEDS: Phenylephrine/Lidocaine (15/10) MG/ML 1 ML VIAL (12:57)
[2025-01-13] MEDS: Trypan Blue 0.06% 0.5 ML SYR (12:58)
[2025-01-13] MEDS: Prednisolone 1%, Moxifloxacin 0.5%, Bromfenac 0.09% 5.6ML BTL OD (12:58)
[2025-01-13] MEDS: Balanced Salt Soln.-PLUS 500 ML BAG OP (12:58)
[2025-01-13] MEDS: Tetracaine 0.5% 4 ML BTL OD (12:59)
[2025-01-13 13:24] VITALS: BP 126/66; PULSE 56; RESP 16; TEMP 36.6; O2SAT 96
--- NOTE | 2025-01-13 13:26 | W.PM.DSUDISC ---
Date of service: 01/13/25 Discharge Plan Disposition Patient Disposition: Home Discharge Details Attending Provider: Luke Anderson Primary Care Provider: Paula Bartlett Home Meds and New Rx's Prescriptions: No Action fluoxetine 40 mg capsule 40 mg PO DIRECTED albuterol sulfate 90 mcg/actuation HFA aerosol inhaler 2 puff inhalation Q4H PRN albuterol sulfate 1.25 mg/3 mL solution for nebulization 1.25 mg inhalation TID-QID PRN dorzolamide 2 % drops 1 drp ophthalmic (eye) TID fluticasone propionate 110 mcg/actuation HFA aerosol inhaler 2 puff inhalation BID fluticasone propionate [Allergy Relief (fluticasone)] 50 mcg/actuation spray,suspension 2 spray intranasal DAILY Rx Instructions: administer into each nostril multivitamin [Daily Multi-Vitamin] Tablet 1 tab PO DAILY fenofibrate 160 mg tablet 160 mg PO DAILY atorvastatin 80 mg tablet 80 mg PO DAILY famotidine 20 mg tablet 20 mg PO DAILY lisinopril 40 mg tablet 40 mg PO DAILY hydrochlorothiazide 50 mg tablet 50 mg PO BID metoprolol tartrate 50 mg tablet 50 mg PO BID Discharge Instructions Stand Alone Forms: DSU Post-Op CataractAnastasiya (DSU) Discharge Orders Discharge Orders: Discharge Order (Routine); Ordered 01/13/25 Ordered By: Luke Anderson DS: Diagnosis Discharge Diagnosis (1) Posterior subcapsular age-related cataract, right eye: Status: Resolved (2) Nuclear age-related cataract, right eye: Status: Resolved
--- NOTE | 2025-01-13 13:27 | W.PM.OP ---
Operative Note Operative Note PRE-OP DIAGNOSIS: Nuclear/posterior subcapsular cataract, right eye Primary open-angle glaucoma, right eye, moderate stage POST-OP DIAGNOSIS: same PROCEDURE: Cataract extraction using phacoemulsification with intraocular lens implant, right eye Insertion of multiple anterior segment aqueous drainage devices (Glaukos iStent inject W) into trabecular meshwork, right eye SURGEON: Luke Anderson ANESTHESIA TYPE: Local By Surgeon and MAC Refer to Anesthesia Record ESTIMATED BLOOD LOSS: 0 PATHOLOGY: none sent COMPLICATIONS: None Patient was transported to: same day Patient's condition: stable Implants: Pj Clareon [id number] Indications: Progressive decreased vision due to cataract, right eye Primary open-angle glaucoma, right eye Procedure Description: CATARACT SURGERY OPERATIVE REPORT PREOPERATIVE DIAGNOSIS: 1. Nuclear/posterior subcapsular cataract, right eye 2. Primary open-angle glaucoma, right eye, moderate stage POSTOPERATIVE DIAGNOSIS: Same OPERATION: 1. Cataract extraction using phacoemulsification with posterior chamber intraocular lens implant, right eye. 2. Insertion of multiple anterior segment aqueous drainage devices (Glaukos iStent inject W) into trabecular meshwork, right eye IOL: IOL Pj Clareon [id number] intraocular lens IOL Power: + 21.0 diopters IOL Serial Number: [id number] Optic Diameter: 6.0mm Haptic/Overall Diameter: 13.0mm PHACO INFO: Pj Centurion Vision System with OZil and Active Fluidics Cumulative Dispersed Energy (CDE): 16.8 seconds TRABECULAR MICRO-BYPASS STENT INFO: Glaukos iStent inject x 3 Reference Number: [id number] Serial Number: [id number] SURGEON: Luke Anderson MD, CALIN ANESTHESIA: Monitored Anesthesia Care (MAC), with local sub-tenon's anesthetic infiltration COMPLICATIONS: None SPECIMENS: None INDICATIONS FOR PROCEDURE: The patient is a 59-year-old lady with history of moderate stage primary open-angle glaucoma, currently controlled on 3 medications. She has developed a significant nuclear/posterior subcapsular cataract in the right eye and desires cataract surgery to improve and maximize her vision. The option of minimally invasive glaucoma surgery at the time of cataract surgery was offered to the patient and she wished to proceed with this as well, in the form of trabecular micro-bypass stent. See office notes for detailed information. PROCEDURE: The correct surgical eye was identified and marked as the right eye and the pupil was dilated in the preoperative area using mydriatics and cycloplegics. The dilated pupil size was 7.0 mm. Oral sedation was administered in the form of an Imprimis MKO Melt (midazolam 3mg/ketamine 25mg/ondansetron 2mg). The patient was brought to the operating room where cardiopulmonary monitoring was instituted and surgical time-out was performed, confirming the correct operative eye and IOL power. Topical anesthesia was administered and ophthalmic povidone-iodine 5% was instilled into the conjunctival fornices. The ming-ocular area was prepped with Betadine 10% solution and draped in the usual sterile fashion for intraocular surgery, including an aperture drape. A Tegaderm transparent film dressing was cut in half and used to cover the lashes and lid margins. Care was taken to sequester the lashes and lid margins under the Tegaderm dressing. A lid speculum was placed between the lids of the operative eye and the Pj LuxOR Revalia operating microscope was maneuvered into position. Aimee scissors were then used to make a conjunctival buttonhole approximately 6mm posterior to the limbus in the inferonasal quadrant. Blunt dissection was carried out to expose bare sclera, and a blunt-tipped sub-tenon?s anesthesia cannula was introduced and passed posteriorly along the globe where non-preserved plain lidocaine was injected into posterior sub-Tenon?s space. A sideport knife was used to make a paracentesis port. VisionBlue was injected into the anterior chamber and allowed to sit for 30 seconds. Intraocular phenylephrine/lidocaine was injected into the anterior chamber. The anterior chamber was then filled with viscoelastic. A keratome knife was used to construct a 2-plane clear corneal tunnel extending 2.0mm into clear cornea. A flap was raised on the anterior capsule and capsulorhexis forceps were used to complete a continuous curvilinear capsulorhexis of 5.0 mm. Balanced salt solution was then used to perform cortical cleaving hydrodissection and nuclear hydrodelineation until the lens could be freely rotated within the capsular bag. The lens nucleus was then disassembled and removed within the capsular bag and iris plane using phacoemulsification. Residual cortical material was removed using the irrigation/aspiration handpiece. The posterior capsule was carefully polished to remove as much residual lens epithelial cells as safely possible. The capsular bag was then inflated and the anterior chamber deepened with cohesive viscoelastic. The lens implant described above was inserted into the capsular bag using the pre-loaded Pj Autonome Injector. A Kuglen hook was used to dial the IOL into position. The anterior chamber was then slightly over-filled with viscoelastic. The microsope and the patient's head were tilted into the ideal position for viewing of the anterior chamber angle. Viscoelastic was placed on the cornea followed by a surgical gonionlens, and the anterior chamber angle landmarks were identified. The Metconnex iSMandelbrot Projectt inject Infinite handpiece was introduced under direct visualization.. The trocar was advanced through the central portion of the trabecular meshwork and into the back wall of Schlemm's canal in the inferonasal quadrant, with care taken to ensure the micro-insertion tube was perpendicular to the trabecular meshwork. The trabecular meshwork was lightly dimpled and the stent was injected without difficulty. The same procedure was then performed in the nasal quadrant. The third stent could not be injected, as the patient was moving uncontollably. The first two stents were then examined and noted to be in good position within the trabecular meshwork. A mild amount of blood reflux was noted through the stent apertures. The microscope and the patients head were returned to the normal coaxial position. Viscoelatic was then removed from the anterior chamber using the I/A handpiece. The lens implant was noted to center nicely within the capsular bag. The incisions were stromally hydrated, and the anterior chamber was reformed using BSS. Then 0.5cc of moxifloxacin 1.0mg/ml were injected into the capsular bag and anterior chamber. The incisions were checked with a Weck spear and found to be secure. Several drops of ophthalmic povidone-iodine 5% were then applied to the eye followed by two drops of Imprimis combination prednisolone/moxifloxacin/nepafenac solution. The drapes were removed and a clear plastic protective eye shield was placed over the eye. The patient was then returned to Same Day Surgery in stable condition. Date of Procedure: 01/13/25
--- NOTE | 2025-01-13 13:47 | W.ANESPOSTOP ---
Postoperative Evaluation Date, Time and Location Date Performed: 01/13/25 Time Performed: 13:35 Patient Location: Day Surgery Unit Vital Signs Most Recent Imported Vital Signs: Most Recent Vital Signs Temp Pulse Resp BP Pulse Ox 36.6 C 56 L 16 126/66 96 01/13/25 13:24 01/13/25 13:24 01/13/25 13:24 01/13/25 13:24 01/13/25 13:24 Pain Score Most Recent Pain Score: Most Recent Pain Score Pain Level 0 01/13/25 13:24 Assessment Mental Status: Awake (Alert & Oriented to Patient Baseline) Airway and Respiratory Function: Patent airway with normal (patient baseline) respiratory exam Cardiovascular Function: Hemodynamically Stable Hydration Status: Adequately Hydrated Nausea & Vomiting: No Nausea or Vomiting Pain: Pt. Denies Any Pain Peripheral Nerve Block: Patient did not receive a nerve block
[2025-01-13 16:21] VITALS: BP 124/72; PULSE 59; RESP 16; TEMP 36.4; O2SAT 98
== END 2025-01-13 14:02 | disposition home or self-care (01) ==
PROVIDERS: PCP Nurse Practitioner; Visit Provider Ophthalmology
PROC: (CPT 66991; principal; 2025-01-13 12:15)
DX: H25.041 Posterior subcapsular polar age-related cataract, right eye (principal); H25.11 Age-related nuclear cataract, right eye; H40.1112 Primary open-angle glaucoma, right eye, moderate stage
CPT/HCPCS: 66991; 00123; V2632; J2003

== ENCOUNTER 2025-01-27 16:11 | Outpatient (CLI) | payer MEDICARE, MEDICAID, SELFPAY ==
[2025-01-27 10:53] LABS: Abs Immature Grans 0.01 10^3/uL (0.0-0.06); Absolute Basophil Count 0.06 10^3/uL (0.0-0.2); Absolute Eosinophil Count 0.17 10^3/uL (0.0-0.7); Absolute Lymphocyte Count 1.46 10^3/uL (1.2-3.4); Absolute Monocyte Count 0.47 10^3/uL (0.1-0.8); Absolute Neutrophil Count 2.56 10^3/uL (1.2-6.7); Basophils % 1.3 %; Eosinophils % 3.6 %; HGB 10.7 g/dL (11.2-15.7); Immature Grans % 0.2 %; Lymphocytes % 30.9 %; MCH 28.7 pg (27.0-33.0); MCHC 32.4 % (32.0-36.0); MCV 89 fL (80-95); MPV 11.1 fL (8.0-11.0); Monocytes % 9.9 %; Neutrophils % 54.1 %; Platelet Count 338 10^3/uL (130-400); RBC 3.73 10^6/uL (3.93-5.22); RDW 14.7 % (11.7-14.6); RDW-SD 47.5 fL; WBC 4.73 10^3/uL (4.4-10.8)
[2025-01-27 11:18] LABS: Hemoglobin A1C 5.7 % (<5.7)
[2025-01-27 11:45] LABS: ALT 21 U/L (14-59); AST 16 U/L (15-37); Albumin 4.2 g/dL (3.4-5.0); Alkaline Phosphatase 45 U/L (46-116); Anion Gap 7.7 mmol/L (3-11); BUN 46 mg/dL (7-18); Bilirubin, Total 0.39 mg/dL (0.2-1.0); CO2 27.3 mmol/L (21.0-32.0); CREATININE 1.8 mg/dL (0.55-1.02); Calcium 9.8 mg/dL (8.5-10.1); Calculated LDL 103 mg/dL (<100); Chloride 104 mmol/L (98-107); Cholesterol 197 mg/dL (<200); Estimated GFR 31.66 (mL/min/1.73m2); Glucose 97 mg/dL (74-106); HDL Cholesterol 54 mg/dL (>or=50); Magnesium 1.6 mg/dL (1.8-2.4); Potassium 4.5 mmol/L (3.5-5.1); Sodium 139 mmol/L (136-145); Total Protein 7.8 g/dL (6.4-8.2); Triglyceride 204 mg/dL (<150)
== END 2025-01-27 16:12 | disposition home or self-care (01) ==
PROVIDERS: PCP Nurse Practitioner; Visit Provider Nurse Practitioner
DX: Z13.6 Encounter for screening for cardiovascular disorders (principal); E11.9 Type 2 diabetes mellitus without complications
CPT/HCPCS: 36415; 80053; 80061; 83036; 83735; 85025

== ENCOUNTER 2025-02-03 00:19 | Outpatient (CLI) | payer MEDICARE, MEDICAID, SELFPAY ==
--- NOTE | 2025-02-03 | DI.CT_ITS ---
Exam(s) CT CHEST/ABD/PEL W EXAM: CT CHEST/ABD/PEL W CLINICAL HISTORY: CHRONIC KIDNEY DISEASE, DIABETES, ABNL WT LOSS, N18.30. TECHNIQUE: Imaging Protocol: Axial computed tomography images with coronal and sagittal reformatted images were created and reviewed. Computer aided detection (CAD) was utilized. CONTRAST MATERIAL: Intravenous: Omnipaque 350 Contrast volume:100 ml Oral: yes / COMPARISON: No exams were available for comparison FINDINGS: CHEST: Pulmonary parenchyma: No consolidation. No dominant measurable mass. No pulmonary nodules. Tracheobronchial tree: No bronchiectasis. No mucous plugging.No bronchial wall thickening. Pleura: No effusion or pneumothorax. Mediastinum: Within normal limits. Pulmonary arteries: No visible emboli. Cardiovascular: The heart is mildly enlarged. There are mild coronary artery calcifications. No per icardial effusion. Thoracic aorta non-dilated. Bones: Degenerative changes with endplate osteophytes. No lytic or blastic lesions.No compression fr actures. Soft tissues: Unremarkable. ABDOMEN and PELVIS: Liver: Normal density. No suspicious mass. Gallbladder and biliary tract: No evidence of stones or wall thickening. No biliary dilatation. Pancreas: Normal density, no abnormal calcifications or inflammatory process. Spleen: Normal. Kidneys: Normal size, contour and axis. No radiodense stones. No obstructive uropathy. 13 millimete r cyst again noted at the lower pole of the left kidney. No suspicious masses seen. Adrenal glands: No masses seen. Aorta: Abdominal portion non-dilated. Minimal atherosclerotic changes. Lymph nodes: Within normal limits. Soft tissues: Unremarkable. Bladder: Unremarkable. Bowel: No obstruction or bowel wall thickening. The appendix appears normal. Moderate quantity of st ool. Peritoneal cavity: No ascites. No focal collection. No mesenteric inflammatory response. No free ai r. Bones: No compression fracture. No lytic or blastic lesion. There are degenerative disc changes and facet degenerative changes are noted in lumbar spine. There are moderate degenerative changes of redd th hips. Reproductive organs: The uterus is normal in size. The endometrial stripe is abnormally thickened to 7.5 millimeters. There may be a small posterior fibroid. The ovaries appear normal. IMPRESSION: No acute abnormality in the chest. Thickening of the endometrial stripe is 7.5 millimeters. Pelvic ultrasound is recommended for furthe r evaluation. RADIATION DOSE DELIVERED: Total DLP DATA REPOSITORY: All CT scans at this facility are submitted to the National Radiology Data Registry (NRDR) Dose Index Registry (DIR) with the [employer] (ACR). RADIATION OPTIMIZATION: All CT scans at this facility use at least one of these dose optimization te chniques: automated exposure control; mA and/or kV adjustment per patient size (includes targeted exa ms where dose is matched to clinical indication); or iterative reconstruction.
[2025-02-03] MEDS: Barium Sulfate 2% W/V-Berry Smoothie 450 ML BTL PO (08:26)
[2025-02-03] MEDS: Barium Sulfate 2% W/V-Creamy Vanilla Smoothie 450 ML BTL PO (08:26)
[2025-02-03 09:03] LABS: CREATININE 1.6 mg/dL (0.55-1.02); Estimated GFR 36.47 (mL/min/1.73m2)
[2025-02-03] MEDS: Omnipaque 350 MG/ML 100 ML BTL IJ (10:55)
[2025-02-03] MEDS: Normal Saline - Diluent 50 ML VIAL IJ (10:57)
== END 2025-02-03 00:39 ==
LOC: DI 00:19
PROVIDERS: PCP Nurse Practitioner; Visit Provider Nurse Practitioner
DX: N18.30 Chronic kidney disease, stage 3 unspecified (principal)
CPT/HCPCS: 74177; 71260; 82565; J3490

== ENCOUNTER 2025-03-09 01:11 | Outpatient (CLI) | payer MEDICARE, MEDICAID, SELFPAY ==
--- NOTE | 2025-03-09 | DI.US_ITS ---
Exam(s) US PELVIS TRANSVAGINAL EXAM: US PELVIS TRANSVAGINAL CLINICAL HISTORY: Abnl findings on DI of other specified body structures, R93.89, CAP CT 02/03 TECHNIQUE: Transabdominal and transvaginal imaging was performed using standard protocol. COMPARISON: CT CT CHEST/ABD/PEL W from 02/03/2025 FINDINGS: UTERUS: Anteverted. 5.7 x 2.4 x 3.4 cm Endometrium: Abnormally thickened at 10 millimeters. Endometrium appears heterogeneous and shows sev eral cystic spaces bowel as vascularity. Myometrium: Small posterior fibroid measuring 12 millimeters. Cervix: Unremarkable. OVARIES: Right: Cyst or mass: None. Left: Cyst or mass: None. DOPPLER: Color: Symmetric and uniform flow to both ovaries. No hyperemia. CUL-DE-SAC: Free fluid: None. IMPRESSION: 1. Abnormally thickened, heterogeneous and vascular endometrium. Biopsy recommended. 2. Unremarkable bilateral ovaries. DATA REPOSITORY:
== END 2025-03-09 01:31 ==
LOC: DI 01:12
PROVIDERS: PCP Nurse Practitioner; Visit Provider Nurse Practitioner
DX: R93.89 Abnormal findings on diagnostic imaging of other specified body structures (principal)
CPT/HCPCS: 76830; 76856

== ENCOUNTER 2025-03-20 01:56 | Outpatient (CLI) | payer MEDICARE, MEDICAID, SELFPAY ==
--- NOTE | 2025-03-20 | DI.MAMMO_ITS ---
Exam(s) MAMMO SCREENING EXAM: MAMMO SCREENING CLINICAL HISTORY: Screening, Z12.31 TECHNIQUE: Bilateral full field digital CC and MLO mammographic images were obtained with 3D tomosyn thesis and utilizing computer aided detection (CAD). COMPARISON: Available for comparison. FINDINGS: Masses/Architectural Distortion: No suspicious masses or areas of architectural distortion are presen t. Microcalcifications: No suspicious pleomorphic-type are seen. Skin Thickening/Nipple Retraction: None. IMPRESSION: 1. No significant interval change with no specific features of malignancy noted. 2. Unless there is more urgent need, screening mammography is recommended, as per [employer] guidelines. BI-RADS Category 1 - Negative Breast Density - Category B - Scattered areas of fibroglandular density Breast density category C or D implies that the patient has dense breast tissue. Dense breast tissue is very common and is not abnormal but dense breast tissue can make it harder to find cancer on a ma mmogram. Also, dense breast tissue may increase their breast cancer risk. This information about the result of the mammogram report was provided to the patient to raise their awareness. Use this report when you speak with the patient about their risks for breast cancer, which includes their family hist ory. At that time, you may recommend for more screening tests (Ultrasound or MRI) as they might be us eful based on their risk. A negative radiographic report should not delay biopsy if a dominant or clinically suspicious mass is present. Up to ten percent of cancers are not identified on mammography. A negative report may reinforce clinical impression. Adenosis and dense breasts may obscure an underlying neoplasm. False positive reports average 6 to 10%. Patient will receive a letter notifying them of these results.
== END 2025-03-20 02:16 ==
LOC: DI 01:56
PROVIDERS: PCP Nurse Practitioner; Visit Provider Nurse Practitioner
DX: Z12.31 Encounter for screening mammogram for malignant neoplasm of breast (principal); R92.323 Mammographic fibroglandular density, bilateral breasts
CPT/HCPCS: 77063; 77067

== ENCOUNTER 2025-08-15 12:08 | Emergency (ER) | payer MEDICARE, MEDICAID, SELFPAY ==
[2025-08-15 12:09] VITALS: BP 120/77; PULSE 61; RESP 18; TEMP 36.4; O2SAT 96
--- NOTE | 2025-08-15 12:15 | DI.RAD_ITS ---
Exam(s) XR KNEE LT 3V AP,LAT,KATHERYN EXAM: XR KNEE LT 3V AP,LAT,KATHERYN CLINICAL HISTORY: left kneer pain. TECHNIQUE: 2D digital imaging was performed of the left knee. Four images were obtained. Merchant,AP, lateral and PA tunnel views were obtained. COMPARISON: No exams were available for comparison FINDINGS: BONES: No acute fracture is present. No bony destructive lesion is seen. Enthesophytes are seen at the patella and the anterior tibial tuberosity. JOINTS: The knee is normally aligned. No joint effusion is seen. No loose body. SOFT TISSUE: Normal. IMPRESSION: There is no acute abnormality. DATA REPOSITORY: RADIATION DOSE DELIVERED:
--- NOTE | 2025-08-15 12:23 | W.ED.GENAD ---
Discharge Plan Disposition Patient Disposition: Home Discharge Details Clinical Impression: Acute pain of left knee Primary Care Provider: Paula Bartlett ED Provider: Connor De La Rosa Home Meds and New Rx's Prescriptions: Continued fluoxetine 40 mg capsule 40 mg PO DIRECTED albuterol sulfate 90 mcg/actuation HFA aerosol inhaler 2 puff inhalation Q4H PRN albuterol sulfate 1.25 mg/3 mL solution for nebulization 1.25 mg inhalation TID-QID PRN dorzolamide 2 % drops 1 drp ophthalmic (eye) TID fluticasone propionate 110 mcg/actuation HFA aerosol inhaler 2 puff inhalation BID fluticasone propionate [Allergy Relief (fluticasone)] 50 mcg/actuation spray,suspension 2 spray intranasal DAILY Rx Instructions: administer into each nostril multivitamin [Daily Multi-Vitamin] Tablet 1 tab PO DAILY fenofibrate 160 mg tablet 160 mg PO DAILY atorvastatin 80 mg tablet 80 mg PO DAILY famotidine 20 mg tablet 20 mg PO DAILY lisinopril 40 mg tablet 40 mg PO DAILY hydrochlorothiazide 50 mg tablet 50 mg PO BID metoprolol tartrate 50 mg tablet 50 mg PO BID Discharge Instructions Additional Instructions: You are seen in the emergency department for your knee pain. Your x-ray showed no sign of any acute fractures. As we discussed if your knee becomes red more swollen or if you have any increasing pain please return to the emergency department. Otherwise please follow-up with your primary care provider as previously scheduled next week. Please wear this brace as needed for comfort. For your pain please take medications as follows: 1. Take acetaminophen (Tylenol), 1,000 mg (two 500 mg tabs) every 6 hours [2. Take ibuprofen (Advil), 400 mg every 6 hours.] Discharge Data Discharge Date/Time-TO BE ENTERED AT DEPARTURE: 08/15/25 13:54 HPI General Date/Time Provider Initiated Documentation: 08/15/25 12:18. HPI Narrative: MDM This is an overall very well-appearing afebrile and not tachycardic 60-year-old female with traumatic left knee pain negative x-rays for which patient will receive knee brace with weightbearing as tolerated and outpatient PCP follow-up scheduled for next week. No pain on proportion to suggest necrotizing soft tissue infection. No rash to knee to suggest zoster. Patient is able to straight leg raise so I am not concern for quadriceps tendon injury. Patient has no warmth nor significant effusion to suggest septic joint so no indication for arthrocentesis. Left foot warm and well-perfused so I am not concerned for critical limb ischemia so I do not feel patient requires a CT angiogram of her aorta with runoffs. No history of gout to suggest crystal arthropathy. No calf tenderness tachycardia nor hypoxia so my suspicion is low for DVT so I did not feel that the patient required a left lower extremity duplex study. Soft compartments so I did not feel patient required assessment of compartment pressures. No preceding chest pain to suggest ACS. No head strike to suggest increased risk for intracranial hemorrhage so I did not feel patient required a CT scan of her head. No erythema to suggest cellulitis. No fluctuance to suggest abscess. Patient and her and I discussed that she should return to ED if she develop worsening pain any increased discomfort in her knee or if she had any other concerns. She was discharged with an empiric trial of expectant outpatient management. HPI The patient presents to the emergency department for evaluation of left knee pain. She experienced a fall from her bed on Thursday morning, resulting in an injury to her left knee. This morning, she attempted to stretch it out but found herself unable to move it. She reports no head injury, nausea, or vomiting. She also has no history of surgeries on the affected knee, gout, or fevers. Her mobility is currently limited to using a wheelchair and walker. The fall was due to a loss of balance, and she did not experience any chest pain or breathing difficulties prior to the incident. Exam General: Well-appearing in no acute distress speaking in complete sentences. Head: Normocephalic, atraumatic. Eye: Extraocular eye movements intact. No conjunctival injection. No scleral icterus. Ear, nose, mouth, throat: Grossly normal inspection. Normal voice, handling secretions normally. Neck: Trachea midline. Cardiovascular: Well-perfused distal extremities. Respiratory: Nonlabored respiration. Gastrointestinal: Nondistended abdomen. Musculoskeletal: No edema. Moving all 4 extremities spontaneously. Left knee no signs of any trauma. Left lower extremity no erythema. No fluctuance. Patient can straight leg raise on left. Left foot warm well-perfused with intact DP and PT pulses. 5 out of 5 dorsi plantarflexion left-sided strength. No calf tenderness. Negative Homans' sign. Soft lower extremity compartments on the left. Skin: Normal for age and race, grossly normal temperature and turgor. No acute rash. Neurologic: Alert and appropriate, no apparent acute deficits. Related Data Home Medications ?Medication ?Instructions ?Recorded ?Confirmed albuterol sulfate 1.25 mg/3 mL 1.25 mg inhalation TID-QID PRN 06/01/23 08/15/25 solution for nebulization albuterol sulfate 90 mcg/actuation 2 puff inhalation Q4H PRN 06/01/23 08/15/25 aerosol inhaler atorvastatin 80 mg tablet 80 mg PO DAILY 06/01/23 08/15/25 dorzolamide 2 % eye drops 1 drp ophthalmic (eye) TID 06/01/23 08/15/25 famotidine 20 mg tablet 20 mg PO DAILY 06/01/23 08/15/25 fenofibrate 160 mg tablet 160 mg PO DAILY 06/01/23 08/15/25 fluoxetine 40 mg capsule 40 mg PO DIRECTED 06/01/23 08/15/25 fluticasone propionate 110 2 puff inhalation BID 06/01/23 08/15/25 mcg/actuation HFA aerosol inhaler fluticasone propionate 50 2 spray intranasal DAILY 06/01/23 08/15/25 mcg/actuation nasal spray,suspension (Allergy Relief (fluticasone)) hydrochlorothiazide 50 mg tablet 50 mg PO BID 06/01/23 08/15/25 lisinopril 40 mg tablet 40 mg PO DAILY 06/01/23 08/15/25 metoprolol tartrate 50 mg tablet 50 mg PO BID 06/01/23 08/15/25 multivitamin (Daily Multi-Vitamin 1 tab PO DAILY 06/01/23 08/15/25 tablet) Allergies Allergy/AdvReac Type Severity Reaction Status Date / Time No Known Allergies Allergy Verified 08/15/25 12:29 General Stated Complaint: Orthopedic MADHU: 4 Course Vital Signs Vital signs: Vital Signs Temperature 36.4 C L 08/15/25 12:09 Pulse 61 08/15/25 12:09 Respiratory Rate 18 08/15/25 12:09 Blood Pressure 120/77 08/15/25 12:09 Pulse Oximetry 96 08/15/25 12:09 Temperature 36.4 C L 08/15/25 12:09 Pulse 61 08/15/25 12:09 Respiratory Rate 18 08/15/25 12:09 Blood Pressure 120/77 08/15/25 12:09 Pulse Oximetry 96 08/15/25 12:09 Pain Level 10 08/15/25 12:09 PFSH All Active Problems (Updated 08/15/25 @ 13:26 by Connor De La Rosa MD) Acute pain of left knee (Acute) Snoring (Acute) Disorder of middle ear and mastoid (Acute) Impairment of speech discrimination (Acute) Sensorineural hearing loss of right ear (Acute) 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 ear (Acute) Medical History (Updated 08/15/25 @ 13:26 by Connor De La Rosa MD) Influenza vaccination declined History of colonic polyps Chronic cough Habitual snoring Sleeping difficulties Nevus Moderate persistent asthma without complication Vitamin D deficiency Sinus tachycardia Menopause History of cigar smoking CKD (chronic kidney disease) stage 2, GFR 60-89 ml/min Hyperlipidemia GERD (gastroesophageal reflux disease) Chronic nausea Major depressive disorder Secondary hypertension Surgical History (Updated 01/13/25 @ 13:27 by Luke Anderson MD) History of bilateral tubal ligation H/O colonoscopy Family History Father , 95 Heart disease Mother , 41 Cancer Heart disease Social History Smoking/Tobacco Use Status: Never Smoking risk assessment performed?: Yes Alcohol Intake: current Alcohol Intake frequency: holidays/special occasions only Drug use: Never Substance use type: does not use Household members: spouse Housing: apartment current occupation: disabled Pets and animals: No What is your relationship status?: Panel score (0-1 are the most socially isolated patients): 1 Additional Social history: [employer]
[2025-08-15] MEDS: Acetaminophen 500 MG TAB 1000 MG PO (12:33)
[2025-08-15 13:51] VITALS: BP 118/70; PULSE 55; RESP 16; O2SAT 97
--- NOTE | 2025-08-28 09:38 | NUR.NOTE ---
Accessed Pt chart to print the Providers note for [facility]. I will fax the notes to them
== END 2025-08-15 13:54 | disposition home or self-care (01) ==
PROVIDERS: Emergency Provider Emergency Medicine; PCP Nurse Practitioner
DX: M25.562 Pain in left knee (principal); W19.XXXA Unspecified fall, initial encounter
CPT/HCPCS: 73562; 99283

== ENCOUNTER 2025-09-08 03:13 | Outpatient (CLI) | payer MEDICARE, MEDICAID, SELFPAY ==
[2025-09-08] MEDS: Barium Sulfate 2% W/V-Creamy Vanilla Smoothie 450 ML BTL PO ×2 (08:49→08:51)
--- NOTE | 2025-09-08 09:00 | DI.CT_ITS ---
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 Lung Computer Aided Detection (CAD) was utilized. CONTRAST MATERIAL: Intravenous: Omnipaque 350 contrast volume:75 mL Oral: Yes COMPARISON: CT CT CHEST/ABD/PEL W from 02/03/2025 FINDINGS: CHEST: Tracheobronchial tree: Patent where visualized. No evidence of bronchiectasis. Pulmonary parenchyma: No consolidation or dominant measurable mass. No architectural distortion. Visualized thyroid gland: Unremarkable. Mediastinum and Naomi: No dominant adenopathy or fluid collection. The esophagus is unremarkable. Pleura: No effusion or pneumothorax. Heart: The heart is not dilated. No coronary artery calcifications are seen. No pericardial effusion. The RV to LV ratio is less than 1. Pulmonary arteries: There are filling defects seen in pulmonary artery branches to the left lower lobe, right middle lobe and right lower lobe. There is a branching thrombus seen in the distal right intralobar artery extending into the right middle lobe and right lower lobe segmental branches (series 10, image 73). Aorta: Thoracic aorta non-dilated. There is no evidence of dissection. Mild atherosclerotic calcification is present. Lymph nodes: Within normal limits. Soft tissues: Unremarkable. Bones:Within normal limits for the patient's age. There are no aggressive osseous lesions. ABDOMEN: Liver: Normal density. No measurable mass. Portal, Superior Mesenteric, and Splenic Veins: Unremarkable. Gallbladder and Biliary Tract: No radiodense calculus or dilation. Pancreas: Normal density, no abnormal calcifications or inflammatory process. Spleen: Normal. Adrenals: No masses seen. Kidneys: Normal size, contour and axis. No radiodense stones or obstructive uropathy. There is a stable simple cyst in the left kidney. No follow-up is recommended. Abdominal Aorta: Abdominal portion non-dilated. Mild atherosclerotic calcification is present. Bowel: No obstruction or bowel wall thickening. There is no evidence of appendicitis. Peritoneal Cavity: No ascites, collection or mesenteric inflammatory response. No free air. Lymph Nodes: Within normal limits. Bones: Within normal limits for the patient's age. There are no aggressive osseous lesions. Soft Tissues: Unremarkable. PELVIS: Bladder: Symmetric distention, no gross wall thickening. Reproductive Organs: There is again seen thickening of the endometrial stripe measuring up to 9 mm. Lymph Nodes: Within normal limits. Bones: Within normal limits. IMPRESSION: 1. Bilateral pulmonary emboli. No evidence of right heart strain. The RV to LV ratio is less than 1. 2. There are no pulmonary infiltrates. 3. There are no pulmonary nodules. 4. Persistent thickening of the endometrial stripe measuring up to 9 mm. 5. No evidence of abdominal or pelvic metastatic disease. RADIATION DOSE DELIVERED: 636.91mGy.cm Total DLP DATA REPOSITORY: All CT scans at this facility are submitted to the National Radiology Data Registry (NRDR) Dose Index Registry (DIR) with the [employer] (ACR). RADIATION OPTIMIZATION: All CT scans at this facility use at least one of these dose optimization techniques: automated exposure control; mA and/or kV adjustment per patient size (includes targeted exams where dose is matched to clinical indication); or iterative reconstruction.
[2025-09-08] MEDS: Omnipaque 350 MG/ML 100 ML BTL IJ (11:12)
[2025-09-08] MEDS: Normal Saline - Diluent 50 ML VIAL IJ (11:13)
== END 2025-09-08 03:33 ==
LOC: DI 03:14
PROVIDERS: PCP Nurse Practitioner; Visit Provider Obstetrics & Gynecology
DX: C55 Malignant neoplasm of uterus, part unspecified (principal)
CPT/HCPCS: 74177; 71260; J3490

== ENCOUNTER 2025-09-08 16:01 | Emergency (ER) | payer MEDICARE, MEDICAID, SELFPAY ==
[2025-09-08] VITALS (19 sets, daily range): BP systolic 147–165; BP diastolic 62–80; PULSE 58–69; RESP 13–24; TEMP 36.5; O2SAT 92–98
--- NOTE | 2025-09-08 16:00 | RT.EKG_ITS ---
APPROVED REPORT Exam: Resting ECG Reason for Exam: PE? Patient Location: E HR:62 bpm ECG Measurements Heart Rate 62 AXIS MN [id number] P [id number] QRSd 94 QRS 55 QT 416 T 45 QTc 422 Conclusion Junctional rhythm...absent P waves, slow V-rate significant motion artifact
--- NOTE | 2025-09-08 16:15 | RT.EKG_ITS ---
APPROVED REPORT Exam: Resting ECG Reason for Exam: repeat Patient Location: E HR:65 bpm ECG Measurements Heart Rate 65 AXIS MA 145 P 73 QRSd 87 QRS 46 QT 408 T 43 QTc 424 Conclusion Sinus rhythm...normal P axis, V-rate 60- 99
--- NOTE | 2025-09-08 16:52 | ED.GENADUL_ITS ---
Discharge Plan Disposition Patient Disposition: Home Condition: Stable Discharge Details Clinical Impression: Pulmonary embolism, bilateral Primary Care Provider: Paula Bartlett ED Provider: Sue Lara Home Meds and New Rx's Prescriptions: New apixaban 5 mg tablet 10 mg PO BID 6 Days Qty: 24 0RF Rx Instructions: Take 2 tablets twice a day by mouth for 7 days (first day's dose given in ED). Eliquis 5 mg tablet 5 mg PO BID 30 Days Qty: 60 0RF Rx Instructions: Take 1 tablet twice a day by mouth starting on day 7 of treatment No Action fluoxetine 40 mg capsule 40 mg PO DIRECTED albuterol sulfate 90 mcg/actuation HFA aerosol inhaler 2 puff inhalation Q4H PRN albuterol sulfate 1.25 mg/3 mL solution for nebulization 1.25 mg inhalation TID-QID PRN dorzolamide 2 % drops 1 drp ophthalmic (eye) TID fluticasone propionate 110 mcg/actuation HFA aerosol inhaler 2 puff inhalation BID fluticasone propionate [Allergy Relief (fluticasone)] 50 mcg/actuation spray,suspension 2 spray intranasal DAILY Rx Instructions: administer into each nostril multivitamin [Daily Multi-Vitamin] Tablet 1 tab PO DAILY fenofibrate 160 mg tablet 160 mg PO DAILY atorvastatin 80 mg tablet 80 mg PO DAILY famotidine 20 mg tablet 20 mg PO DAILY lisinopril 40 mg tablet 40 mg PO DAILY hydrochlorothiazide 50 mg tablet 50 mg PO BID metoprolol tartrate 50 mg tablet 50 mg PO BID Discharge Instructions Additional Instructions: Please call your primary care provider and your oncologist first thing Thursday to let them know you are diagnosed with pulmonary embolism/blood clot in your lungs and arrange for follow-up. You are being prescribed a blood thinner called Eliquis/apixaban. For the first week you will take 2 tablets twice a day. After the first week you will take 1 tablet twice a day. This will be continued for at least a couple of months. Please do not take any medications such as ibuprofen, naproxen, or aspirin. If you need any mild pain medications, I recommend they take Tylenol/acetaminophen 650 mg every 6 hours as needed. Return to emergency care if you develop any new concerning symptoms such as uncontrollable nosebleeds, blood in your stool, experience head injury, have new shortness of breath/chest pain/dizziness, or if you are very worried and need to be rechecked again immediately Referrals: Paula Bartlett [Primary Care Provider, Medicine] [facility] General Date/Time Provider Initiated Documentation: 09/08/25 16:03 . HPI Narrative: Romi is a 60-year-old female who presents to the emergency department today for evaluation of incidental finding of pulmonary embolism on CT. Recently diagnosed with uterine cancer after biopsy on 08/10/2025, had CT performed today to rule out metastases. CT scan revealed pulmonary embolism, prompting ER visit. Primary care physician: Dr. Dona Fleming, [facility]. She denies fevers, chills, fainting, dizziness, chest pain, difficulty breathing, recent coughing, exertional dyspnea, nausea, vomiting, or changes in bowel/bladder habits. No black, sticky, or bloody stools, nosebleeds, or other bleeding issues. No history of other cancers, bleeding disorders, clotting p roblems, diagnosed CVA/intracranial hemorrhage, or recent brain/abdominal surgeries apart from biopsy. Does not consume alcohol regularly or smoke. Has not consulted primary care physician today. reports that there is concern that she may have had a stroke back in April 2025 after experiencing left-sided tingling to upper and lower extremities. She has not received any imaging for this, is waiting to have MRI performed outpatient. Related Data Home Medications ?Medication ?Instructions ?Recorded ?Confirmed albuterol sulfate 1.25 mg/3 mL 1.25 mg inhalation TID- QID PRN 06/01/23 09/08/25 solution for nebulization albuterol sulfate 90 mcg/actuation 2 puff inhalation Q 4H PRN 06/01/23 09/08/25 aerosol inhaler atorvastatin 80 mg tablet 80 mg PO DAILY 06/01/2308/30 dorzolamide 2 % eye drops 1 drp ophthalmic (eye) TID 0 06/01/23 09/08/25 famotidine 20 mg tablet 20 mg PO DAILY 06/01/2308/30 fenofibrate 160 mg tablet 160 mg PO DAILY 06/01/2309/23 fluoxetine 40 mg capsule 40 mg PO DIRECTED 3 09/08/25 fluticasone propionate 110 2 puff inhalation BID 06/0109/08/25 mcg/actuation HFA aerosol inhaler fluticasone propionate 50 2 spray intranasal DAILY 02/1909/08/25 mcg/actuation nasal spray,suspension (Allergy Relief (fluticasone)) hydrochlorothiazide 50 mg tablet 50 mg PO BID 06/01/23 09/08/25 lisinopril 40 mg tablet 40 mg PO DAILY 06/01/2308/30 metoprolol tartrate 50 mg tablet 50 mg PO BID 06/01/23 09/08/25 multivitamin (Daily Multi-Vitamin 1 tab PO DAILY 06/0109/08/25 tablet) apixaban 5 mg tablet 10 mg (2 x 5 mg) PO BID 6 da ys #24 09/08/25 tabs apixaban 5 mg tablet (Eliquis) 5 mg PO BID 30 days #60 tabs 09/08/25 Previous Rx's ?Medication ?Instructions ?Recorded apixaban 5 mg tablet 10 mg (2 x 5 mg) PO BID 6 da ys #24 09/08/25 tabs apixaban 5 mg tablet (Eliquis) 5 mg PO BID 30 days #60 tabs 09/08/25 Allergies Allergy/AdvReac Type Severity Reaction Status Date / Time No Known Allergies Allergy Verified 09/08/25 16:06 General Stated Complaint: Vascular MADHU: 3 Exam Narrative Exam Narrative: General Appearance: Normal. Alert and oriented, no acute distress Vital signs: Within normal limits, only mild hypertension noted Respiratory: Clear lung sounds bilaterally, no wheezes, rales, or rhonchi. Easy work of breathing. 2+ radial pulses bilaterally Cardiovascular: Normal heart sounds, no murmurs, rubs, or gallops. Skin: Warm and dry, no rash. Psychiatric: Normal. Course Vital Signs Vital signs: Vital Signs Temperature 36.5 C 09/08/25 16:04 Pulse 63 09/08/25 16:04 Respiratory Rate 18 09/08/25 16:04 Blood Pressure 147/80 H 09/08/25 16:04 Pulse Oximetry 96 09/08/25 16:04 Temperature 36.5 C 09/08/25 16:04 Pulse 67 09/08/25 16:40 Pulse 67 09/08/25 16:40 Respiratory Rate 20 09/08/25 16:43 Respiratory Effort Normal 09/08/25 16:43 Respiratory Depth Normal 09/08/25 16:43 Respiratory Pattern Normal 09/08/25 16:43 Blood Pressure 147/80 H 09/08/25 16:04 Pulse Oximetry 97 09/08/25 16:40 Pain Level 0 09/08/25 16:04 Medical Decision Making Initial Assessment: Pulmonary embolism diagnosed via CT scan for metastasis from uterine cancer. No chest pain, difficulty breathing, fevers, chills, dizziness, or recent coughing. ED Course: - Blood work conducted to evaluate for appropriateness of anticoagulation - HESTIA score 0, indicating low risk in hemodynamically stable patient -HAS-BLED score calculated to evaluate risk associated with anticoagulation, patient with 1 point based on concern for possible stroke, this indicates a relatively low risk for major bleeding. I independently interpreted the following tests: EKG shows normal sinus rhythm, rate 65, normal intervals, no changes consistent with acute ischemia. CBC notable for anemia unchanged from baseline and mild thrombocytosis, platelets 458. CMP reassuring, creatinine unchanged from baseline, mildly elevated AST and ALT without alk phos or bilirubin elevation. BNP slightly elevated at 576, no previous available for comparison. Troponins reassuring, 9 -> 9. CT performed earlier today shows heart is not dilated, RV to LV ratio is less than 1. No pulmonary vascular congestion noted. Bilateral pulmonary emboli Discussed case with Dr. Lopez, hospitalist to determine disposition of patient. Overall workup today very reassuring, with hemodynamic stability and as ymptomatic patient. Recommend close follow-up with PCP and oncologist. Will initiate apixaban here. Final Assessment: Bilateral pulmonary emboli, provoked (cancer) without indications for hospitali zation Clinical Impression: - Pulmonary embolism Disposition: - Reviewed discharge instructions with patient and her , including use of apixaban, precautions with anticoagulation, importance of follow-up with PCP/oncology, and red flags indicating need for return to emergency care. She voices agreement with plan of care. Patient consented to the use of ANG[facility] Imaging Data Radiologic Study: Radiologist's impression: Exam(s) CT CHEST/ABD/PEL W EXAM: CT CHEST/ABD/PEL W CLINICAL HISTORY: HIGH GRADE UTERINE CANCER, C55 TECHNIQUE: Imaging Protocol: Axial computed tomography images with coronal and sagittal reformatted images were created and reviewed. Lung Computer Aided Detection (CAD) was utilized. CONTRAST MATERIAL: Intravenous: Omnipaque 350 contrast volume:75 mL Oral: Yes COMPARISON: CT CT CHEST/ABD/PEL W from 02/03/2025 FINDINGS: CHEST: Tracheobronchial tree: Patent where visualized. No evidence of bronchiectasis. Pulmonary parenchyma: No consolidation or dominant measurable mass. No architectural distortion. Visualized thyroid gland: Unremarkable. Mediastinum and Naomi: No dominant adenopathy or fluid collection. The esophagus is unremarkable. Pleura: No effusion or pneumothorax. Heart: The heart is not dilated. No coronary artery calcifications are seen. No pericardial effusion. The RV to LV ratio is less than 1. Pulmonary arteries: There are filling defects seen in pulmonary artery branches to the left lower lobe, right middle lobe and right lower lobe. There is a branching thrombus seen in the distal right intralobar artery extending into the right middle lobe and right lower lobe segmental branches (series 10, image 73). Aorta: Thoracic aorta non-dilated. There is no evidence of dissection. Mild atherosclerotic calcification is present. Lymph nodes: Within normal limits. Soft tissues: Unremarkable. Bones:Within normal limits for the patient's age. There are no aggressive osseous lesions. ABDOMEN: Liver: Normal density. No measurable mass. Portal, Superior Mesenteric, and Splenic Veins: Unremarkable. Gallbladder and Biliary Tract: No radiodense calculus or dilation. Pancreas: Normal density, no abnormal calcifications or inflammatory process. Spleen: Normal. Adrenals: No masses seen. Kidneys: Normal size, contour and axis. No radiodense stones or obstructive uropathy. There is a stable simple cyst in the left kidney. No follow-up is recommended. Abdominal Aorta: Abdominal portion non-dilated. Mild atherosclerotic calcification is present. Bowel: No obstruction or bowel wall thickening. There is no evidence of appendicitis. Peritoneal Cavity: No ascites, collection or mesenteric inflammatory response. No free air. Lymph Nodes: Within normal limits. Bones: Within normal limits for the patient's age. There are no aggressive osseous lesions. Soft Tissues: Unremarkable. PELVIS: Bladder: Symmetric distention, no gross wall thickening. Reproductive Organs: There is again seen thickening of the endometrial stripe measuring up to 9 mm. Lymph Nodes: Within normal limits. Bones: Within normal limits. IMPRESSION: 1. Bilateral pulmonary emboli. No evidence of right heart strain. The RV to LV ratio is less than 1. 2. There are no pulmonary infiltrates. 3. There are no pulmonary nodules. 4. Persistent thickening of the endometrial stripe measuring up to 9 mm. 5. No evidence of abdominal or pelvic metastatic disease. PFSH All Active Problems (Updated 09/08/25 @ 18:23 by Sue Leon) Pulmonary embolism, bilateral (Acute) Acute pain of left knee (Acute) Snoring (Acute) Disorder of middle ear and mastoid (Acute) Impairment of speech discrimination (Acute) Sensorineural hearing loss of right ear (Acute) 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 ear (Acute) Medical History (Updated 09/08/25 @ 18:23 by Sue Leon) Influenza vaccination declined History of colonic polyps Chronic cough Habitual snoring Sleeping difficulties Nevus Moderate persistent asthma without complication Vitamin D deficiency Sinus tachycardia Menopause History of cigar smoking CKD (chronic kidney disease) stage 2, GFR 60-89 ml/min Hyperlipidemia GERD (gastroesophageal reflux disease) Chronic nausea Major depressive disorder Secondary hypertension Surgical History (Updated 01/13/25 @ 13:27 by Luke Anderson MD) History of bilateral tubal ligation H/O colonoscopy Family History Father , 95 Heart disease Mother , 41 Cancer Heart disease Social History Smoking risk assessment performed?: No Alcohol Intake: current Alcohol Intake frequency: holidays/special occasions only Drug use: Never Substance use type: does not use Household members: spouse Housing: apartment current occupation: disabled Pets and animals: No What is your relationship status?: Panel score (0-1 are the most socially isolated patients): 1 Additional Social history: [employer]
[2025-09-08 16:54] LABS: HCT 33.1 % (36.0-46.0); HGB 10.9 g/dL (11.2-15.7); MCH 28.5 pg (27.0-33.0); MCHC 32.9 % (32.0-36.0); MCV 87 fL (80-95); MPV 9.9 fL (8.0-11.0); Platelet Count 458 10^3/uL (130-400); RBC 3.82 10^6/uL (3.93-5.22); RDW 12.8 % (11.7-14.6); RDW-SD 39.9 fL; WBC 6.66 10^3/uL (4.4-10.8)
[2025-09-08 17:07] LABS: INR 1.1 (0.9-1.1); PTT Activated 23.2 sec (20.6-30.2); Prothrombin Time 11.3 sec (9.1-11.1)
[2025-09-08 17:18] LABS: ALT 60 U/L (14-59); AST 68 U/L (15-37); Albumin 4.1 g/dL (3.4-5.0); Alkaline Phosphatase 55 U/L (46-116); Anion Gap 9.6 mmol/L (3-11); BUN 36 mg/dL (7-18); Bilirubin, Total 0.4 mg/dL (0.2-1.0); CO2 28.4 mmol/L (21.0-32.0); Calcium 9.7 mg/dL (8.5-10.1); Chloride 99 mmol/L (98-107); Estimated GFR 39.16 (mL/min/1.73m2); Glucose 99 mg/dL (74-106); NT-proBNP 576 pg/mL (<300); Potassium 4.3 mmol/L (3.5-5.1); Sodium 137 mmol/L (136-145); Total Protein 7.9 g/dL (6.4-8.2); Troponin I 9 ng/L (<or=51)
[2025-09-08 18:14] LABS: Troponin I 9 ng/L (<or=51)
[2025-09-08] MEDS: Apixaban 5 MG TAB 10 MG PO ×2 (18:31→19:41)
== END 2025-09-08 19:51 | disposition home or self-care (01) ==
PROVIDERS: Emergency Provider Nurse Practitioner Family; PCP Nurse Practitioner
DX: I26.99 Other pulmonary embolism without acute cor pulmonale (principal)
CPT/HCPCS: 99285 ×2; 80053; 85027; 93005; 83880; 84484; 85610; 85730; 93010

== ENCOUNTER 2025-09-20 01:24 | Outpatient (CLI) | payer MEDICARE, MEDICAID, SELFPAY ==
--- NOTE | 2025-09-20 | DI.US_ITS ---
Exam(s) US EXTREMITY VENOUS BI EXAM: US EXTREMITY VENOUS BI CLINICAL HISTORY: BILAT PE,I26.99,UTERINE CA. TECHNIQUE: Bilateral lower extremity venous ultrasound performed using grayscale, color-flow, and spectral Doppler analysis. COMPARISON: No exams were available for comparison FINDINGS: The right common femoral, femoral and popliteal veins demonstrate normal compressibility, augmentation, and color Doppler. The posterior tibial and peroneal veins are patent. The saphenofemoral junction is unremarkable. There is no evidence of a Mcknight's cyst. The soft tissues are unremarkable. The left common femoral, femoral and popliteal veins demonstrate normal compressibility, augmentation, and color Doppler. The posterior tibial and peroneal veins are patent. The saphenofemoral junction is unremarkable. There is no evidence of a Mcknight's cyst. The soft tissues are unremarkable. IMPRESSION: 1. No evidence of a right lower extremity DVT. 2. No evidence of a left lower extremity DVT. DATA REPOSITORY:
== END 2025-09-20 01:44 ==
LOC: DI 01:24
PROVIDERS: PCP Nurse Practitioner; Visit Provider Obstetrics & Gynecology
DX: I26.99 Other pulmonary embolism without acute cor pulmonale (principal)
CPT/HCPCS: 93970

== ENCOUNTER → 2025-11-24 00:10 | Outpatient (CLI) | payer MEDICARE, MEDICAID, SELFPAY ==
--- NOTE | 2025-11-24 | DI.MRI_ITS ---
Exam(s) MR IAC BRAIN WO/W EXAM: MR IAC BRAIN WO/W CLINICAL HISTORY: [id number],disorder rt middle ear and mastoid,H74.91 TECHNIQUE: Multiplanar multisequence MRI of the brain was performed. Both noninfused and contrast infused sequences were performed. IV Contrast injected was 14 cc Dotarem. COMPARISON: MR MR IAC BRAIN WO/W from 01/28/[address] TEMPORAL BONE WO/W from 07/24/2023 FINDINGS: CEREBRAL PARENCHYMA: No evidence of intracranial hemorrhage, new mass effect nor shift of midline structure. No extraaxial fluid collections. Ventricles are not enlarged nor shifted. There is no significant focal signal abnormality in the cerebellar hemispheres nor within the dm, midbrain, and thalami. There again noted multiple small FLAIR bright foci of signal abnormality the bilateral periventricular white matter consistent with chronic small vessel disease and appearing stable when compared to prior MRI scan of January 2022. These are not associated with hemorrhage, surrounding edema, enhancement, nor restricted diffusion on DWI. There are no ring enhancing lesions in the brain. There is no abnormal meningeal enhancement. INTERNAL AUDITORY CANALS: There are no significant focal findings in the cerebellopontine angles and no evidence of intra canalicular lesions within the IAC's. Seventh and 8th cranial nerves appear intact within the bilateral internal auditory canals. PITUITARY GLAND: No mass nor parasellar abnormality. No obvious abnormality in the cavernous sinuses. No masses in the suprasellar cistern. Optic chiasm appears unremarkable. FLOW VOIDS: The expected flow void are noted. No evidence of obvious aneurysm nor obvious vascular malformation. PARANASAL SINUSES: No significant mucosal thickening nor fluid levels in the maxillary sinuses. Frontal sinuses are clear. Ethmoidal air cells are clear as are the sphenoid sinuses. Prominent left mastoid effusion again noted without improvement compared to previous. There is also fluid signal again noted throughout the left middle ear cavity, unchanged from 01/28/2022. Middle ear ossicles again noted and appear unchanged. The opposite-right mastoid air cells are clear. ORBITS: No obvious abnormal findings. IMPRESSION: 1. No significant change compared to the prior MRI scan of 01/28/2022. There is complete opacification of left sided mastoid air cells and left middle ear cavity again noted. Similar findings are not seen on the opposite-right side. If clinically indicated follow-up CT scan of the temporal bones-middle ear cavities can be performed to determine if there is subtle change when compared to the CT scan which was performed in June 2023. 2. There are multiple unchanged foci of periventricular signal abnormality again noted not associated with hemorrhage, enhancement, surrounding edema, nor restricted diffusion and most probably related to chronic ischemic white matter changes. 3. There are no ring enhancing lesions in the brain and there is no abnormal meningeal enhancement. DATA REPOSITORY:
[2025-11-24] MEDS: Gadoterate meglumine 20 ML SYRINGE IJ (13:03)
[2025-11-24] MEDS: Normal Saline Flush 10 ML SYR IVP (13:03)
== END ==
LOC: DI 00:10
PROVIDERS: PCP Nurse Practitioner; Visit Provider Nurse Practitioner
DX: G45.9 Transient cerebral ischemic attack, unspecified (principal); H74.91 Unspecified disorder of right middle ear and mastoid
CPT/HCPCS: 70553